=== PATIENT | female | born 1990 | race Caucasian/White ===

== ENCOUNTER 2024-10-07 14:00 | Outpatient (AMB) | payer MEDICAID, SELFPAY ==
--- NOTE | 2024-10-07 14:06 | AMB.OBINITIA ---
Vital Signs 10/07/24 14:07 Height 1.55 m Height Method Stated Weight 134.944 kg Weight Measurement Method Standing Scale BMI 56.2 BP 128/82 Blood Pressure Source Automatic Cuff Blood Pressure Location Right Upper Arm Position Sitting Respiration 20 Pulse 92 Pulse Source Monitor Temp 97.8 F Temp Source Temporal Artery Scan Pulse Oximetry (%) 98 Oxygen Delivery Method Room Air Allergies/Home Meds Allergies & Medications Allergies No Known Allergies Allergy (Unknown, Verified 10/07/24 14:08) Medication Reconciliation omeprazole 40 mg capsule,delayed release 40 mg PO QDAY 30 days #30 caps 10/07/24 [Rx] vitamin with calcium no.72-iron 27 mg-folic acid 1 mg tablet ( Vitamins Plus Low Iron) 1 tab PO QDAY 90 days #90 tabs 10/07/24 [Rx] Intake Visit Data Collection New Patient or Established: Established Patient (seen at [facility] within 3 years) Reason for Visit:: follow-up, nausea, increased appetite Do You Feel Safe at Home: Yes Authorities Contacted: N/A PCP or OBGYN visit in last 3 months: Yes Last menstrual period: 08/03/24 Pain Present Currently: No Smoking Status Smoking Status: Never smoker Questionnaires PHQ-9 PHQ-2 Over the last 2 weeks, how often have you been bothered by any of the following problems? 1. Little interest or pleasure in doing things: not at all 2. Feeling down, depressed, or hopeless: not at all Total score: 0 Depression screen completed yes Social History Living Situation History Marital Status: Single Lives With: Alone Housing: House Tobacco History Smoking Status: Never smoker Second Hand Smoke Exposure: No Alcohol History Alcohol Intake: Former Alcohol Intake Frequency: holidays/special occasions only Domestic Abuse History Do You Feel Safe at Home: Yes Past Medical History Past Medical History Have you ever been diagnosed with any of the following: Neurological Problems Seizures: No Cardiology Problems Congestive Heart Failure: No Respiratory Problems Chronic Obstructive Pulmonary Disease (COPD): No Asthma: Yes Stomache/Intestinal Problems Hepatitis: No Genital/Urinary Problems Renal Disease: No Reproductive Problems Genital Herpes: No Gonorrhea: No Pelvic Inflammatory Disease: No Previous Pregnancies: Yes Syphilis: No Endocrine Problems Diabetes Mellitus Type 1: No Diabetes Mellitus Type 2: No Other Problems Hospitalization: Yes Down Syndrome: No Developmental Delay: No Shingles: No Falls: No Blood Transfusions: No Blood Transfusion Reaction: No Anesthesia Reactions: No MRSA: No VRSA: No Vancomycin-Resistant Enterococci: No Human Immunodeficiency Virus (HIV): No Chicken Pox: No Measles: No Mumps: No Rubella (Spanish Measles): No Pertussis: No Clostridium Difficile: No Cancer: No History of Present Illness HPI Chepe Martinez is a 9-week woman presenting for care. She has a history of a blighted ovum in December of last year, for which she underwent a suction curettage. Her last menstrual period was on August 03, 2024, placing her at 9 weeks and 2 days gestation with an estimated due date of May 10. The patient reports experiencing significant nausea throughout the day. She notes that she feels nauseous when not eating and that eating provides some relief, although she still feels nauseous after meals. As a result, she finds herself eating almost all day. The patient also mentions that she is eating more than usual. These symptoms suggest possible acid reflux contributing to her nausea. Prior to this appointment, the patient had an informal ultrasound performed by her cousin, which showed measurements approximately 2 days different from her last menstrual period dating. The patient expressed initial nervousness about the and sought this informal scan for reassurance. Obstetric History - GTPAL: A1 L3 - Current : - Gestational age: 9 weeks and 2 days by last menstrual period - Estimated due date: May 10, 2025 - history: - Blighted ovum in December 2023, treated with suction curettage Surgical History - Suction curettage in December 2023 for a blighted ovum Medications and Supplements - vitamins Social History - Occupation: Patient's cousin works for [employer], a [email or web address] that performs ultrasounds, including at-home gender scans - Living Situation: Lives near [place], as indicated by pharmacy location Review of Systems General: Positive for increased appetite. Gastrointestinal: Positive for nausea, acid reflux. OB Ultrasound OB Ultrasound Ultrasound technique: transabdominal Gestational sac assessment: Presence, location, size, shape: - Ultrasound (10/07/2024): - heartbeat: 165 bpm (normal) - Gestational age: 8 weeks and 1 day - Round gestational sac OB Initial Visit OB Flowsheet OB Flowsheet Initial Weight: Not Recorded Date <del>?</del> EGA Weight Edema CTX Effacement BP Fundal ht Pres Dilation Effacement Station Visit Note Alb Glu FHR Mov 10/07/24 <del>?</del> 9w 2d 134.944 kg 128/82 Mojgan Martinez, [id number] at 9w2d gestation (RUBY: 05/10/2025), presents for care. No CTX/LOF/VB. No NIELSON/VS, Epig/RUQ pain. Reports daily nausea, improved with eating, increased appetite. History of blighted ovum treated with suction curettage December 2023. Ultrasound (10/07/2024): FHR 165 bpm, CRL 8w1d, round gestational sac. Assessment & Plan: [id number] at 9w2d. Intrauterine confirmed. Nausea likely with reflux component. 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 on small frequent meals, avoiding reflux triggers, upright posture after eating Monitor symptoms and reassess at next visit 165 Menstrual History Menstrual reliability: approximate (month known) Flow: normal Menstrual regularity: regular Monthly: Yes Age at menarche: 13 On control pills at conception: No Date of positive home test: 08/20/24 OB History : 5 Para: 3 Hx Total # of Abortions (Spontaneous & Elective): 1 # of Living Children: 3 Delivery History 1st : Child's name: sohail date: 01/16/16 sex: male Gestational age at delivery (weeks): 41 Delivery type: weight (lbs): 2267.962 g History of depression before or after : No 2nd : Child's name: carli date: 05/17/17 sex: female Gestational age at delivery (weeks): 39 Delivery type: weight (lbs): 2721.554 g History of depression before or after : No 3rd : Child's name: uche date: 02/13/19 sex: female Gestational age at delivery (weeks): 39 Delivery type: weight (lbs): 3175.147 g History of depression before or after : No Infection History & Risk Evaluation History of STDs: none HIV risk evaluation: low risk Hepatitis B risk evaluation: low risk Varicella/chicken pox status: immunized Genetic Screening & History Genetic Screening/Teratology Counseling - Includes patient, baby's father, or anyone in either family with: 1. Patient's age 35 years or older as of estimated date of delivery: No 2. Thalassemia (Latvian, Yoruba, Mediterranean, or Background); MCV less than 80: No 3. Neural Tube Defect (Meningomyelocele, Spina Bifida, or Anencephaly): No 4. Congenital Heart Defect: No 5. Down Syndrome: No 6. Keanu-Sachs (Ashkenazi Mandaen, Cajun, [place]): No 7. Nora Disease (Ashkenazi Mandaen): No 8. Familial Dysautonomia (Ashkenazi Mandaen): No 9. Sickle Cell Disease or Trait (): No 10. Hemophilia or other blood disorders: No 11. Muscular Dystrophy: No 12. Cystic Fibrosis: No 13. [place]'s Chorea: No 14. Mental Retardation/Autism: No 15. Other inherited genetic or chromosomal disorder: No 16. Maternal Metabolic Disorder (EG,TYPE 1 Diabetes, PKU): No 17. Patient or baby's father had a child with defects not listed above: No 18. Recurrent loss or a stillbirth: No 19. Medications (including supplements, vitamins, herbs or otc drugs)/illicit/recreational drugs/alcohol since last menstrual period: No 20. Any other: No Infection History 1. Live with someone with TB or exposed to TB: No 2. Rash or viral illness since last menstrual period: No 3. Hepatitis B,C: No Other (see comments) Source: [employer] Review of Systems Review of Systems Systems Reviewed: All systems reviewed, normal except as documented Exam General General Appearance: alert, in no apparent distress and healthy appearing Head Head exam: atraumatic Neck Neck exam: Present normal inspection and trachea midline Chest Chest inspection: Present normal inspection and symmetric chest wall rise External exam: Present normal external exam; Absent tenderness Neuro Neurological exam: Present oriented X3 Psych Psychiatric exam: Present normal affect and normal mood Assessment & Plan Diagnosis / Problem List (1) Supervision of high risk , unspecified, first trimester: Status: Acute (2) Obesity, Class III, BMI 40-49.9 (morbid obesity): Status: Acute (3) Supervision of with other poor reproductive or obstetric history, first trimester: Status: Acute (4) Maternal care for low transverse scar from previous delivery: Status: Acute (5) Uterine size-date discrepancy, first trimester: Status: Acute Plan Mojgan Martinez, , approximately 9 weeks by LMP, with history of blighted ovum and suction D&C in December 2023, presenting for care. Intrauterine Assessment: Patient is approximately 9 weeks and 2 days gestation based on LMP of August 03, 2024, with RUBY of May 10, 2025. Ultrasound performed today shows CRL consistent with 8 weeks and 1 day gestation, which is within an acceptable range of variation. heartbeat was detected at 165 bpm, which is within normal limits. The gestational sac appears round and appropriately sized. Plan: - Perform initial labs including blood group typing, infection screening, and genetic testing for Down syndrome and sex determination - Schedule follow-up ultrasounds for ongoing assessment and growth monitoring - Continue vitamins Nausea and possible acid reflux Assessment: Patient reports significant nausea throughout the day, which is partially alleviated by eating. The constant desire to eat and temporary relief with food intake suggest a possible component of acid reflux contributing to her symptoms. Plan: - Prescribe acid reflux medication to [facility] ([facility] [place]) - Educate patient on dietary modifications and lifestyle changes to manage nausea and reflux symptoms - Monitor symptoms and adjust treatment as needed at follow-up visits Office Procedures OB Clinic LOC & Office Proc's Nursing/Assessment Patient Status: Initial/New Patient OB Clinic Nursing Assessment: BP Monitoring, Medication Reconciliation, Update PMH in EMR and Vital Signs OB Clinic Coordination of Care: Complex Care and Chronic Disease 1-5, Education Complex Pt/Fam, Consent,records obtained, informed consent and Staff clarify orders New Patient Charge New Patient Point Assignment: [id number] 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
[2024-10-07 14:07] VITALS: BP 128/82; PULSE 92; RESP 20; TEMP 36.6; O2SAT 98; BMI 56.2
== END 2024-10-07 14:41 | disposition home or self-care (01) ==
LOC: HODSOBC 14:00
PROVIDERS: Supervising Provider Obstetrics & Gynecology; Visit Provider Obstetrics & Gynecology
DX: O09.291 Supervision of pregnancy with other poor reproductive or obstetric history, first trimester (principal); Z3A.09 9 weeks gestation of pregnancy; O34.211 Maternal care for low transverse scar from previous cesarean delivery; O09.891 Supervision of other high risk pregnancies, first trimester; O26.841 Uterine size-date discrepancy, first trimester; O99.891 Other specified diseases and conditions complicating pregnancy; R11.0 Nausea; E66.813 Obesity, class 3; Z87.59 Personal history of other complications of pregnancy, childbirth and the puerperium
CPT/HCPCS: 99203; G0463

== ENCOUNTER 2024-11-06 14:12 | Outpatient (AMB) | payer MEDICAID, SELFPAY ==
--- NOTE | 2024-11-06 14:25 | OBCLNT_ITS ---
Vital Signs 11/06/24 14:36 Height 1.55 m Height Method Stated Weight 134.377 kg Weight Measurement Method Standing Scale BMI 55.9 BP 136/82 H Blood Pressure Source Automatic Cuff Blood Pressure Location Right Upper Arm Position Sitting Respiration 20 Pulse 99 Pulse Source Monitor Temp 98.1 F Temp Source Oral Pulse Oximetry (%) 96 Oxygen Delivery Method Room Air Allergies/Home Meds Allergies & Medications Allergies No Known Allergies Allergy (Unknown, Verified 11/06/24 14:37) Medication Reconciliation omeprazole 40 mg capsule,delayed release 40 mg PO QDAY 30 days #30 caps 10/07/24 [Rx Confirmed 11/06/24] vitamin with calcium no.72-iron 27 mg-folic acid 1 mg tablet ( Vitamins Plus Low Iron) 1 tab PO QDAY 90 days #90 tabs 10/07/24 [Rx Confirmed 11/06/24] Intake Visit Data Collection New Patient or Established: Established Patient (seen at [facility] within 3 years) Reason for Visit:: CARE Seen by Clinical Staff ONLY (RN/MA): No Screen Roller Required: No Do You Feel Safe at Home: Yes Authorities Contacted: N/A PCP or OBGYN visit in last 3 months: Yes Hx Now: Yes Are you currently on any form of Control: No Pain Present Currently: No Pain Scale Used: Magallanes-Oropeza/Numerical Pain scale:: 0 Smoking Status Smoking Status: Never smoker Questionnaires Covid-19 Vaccine Questionnaire Has patient been vacinated for Covid-19 Have you been vacinated for Covid-19: No PHQ-9 PHQ-2 Over the last 2 weeks, how often have you been bothered by any of the following problems? 1. Little interest or pleasure in doing things: not at all 2. Feeling down, depressed, or hopeless: not at all Total score: 0 PHQ-9 3. Trouble falling or staying asleep, or sleeping too much: Not at all 4. Feeling tired or having little energy: Not at all 5. Poor appetite or overeating: Not at all 6. Feeling bad about yourself - or that you are a failure or have let yourself or your family down: Not at all 7. Trouble concentrating on things, such as reading the newspaper or watching television: Not at all 8. Moving or speaking so slowly that other people could have noticed? - Or the opposite - being so fidgety or restless that you have been moving around a lot more than usual: not at all 9. Thoughts that you would be better off or of hurting yourself in some way: Not at all Total score: 0 Source: Developed by Drs. Jim Palumbo, Elba Cai, Titi Freeman and colleagues, with an educational mamie from [employer] 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 - Patient reports no nausea or vomiting. - She denies any current health concerns or symptoms. No contractions/ LOF/VB No NIELSON/VC/RUQ/Epig pain Care OB Visit Log OB Flowsheet Initial Weight: Not Recorded Date -?-?-?-?-?-?-?-?-?-?-?-?- EGA Weight BP Alb Glu CTX Pres Fundal ht FHR Mov Dilation Station Effa cement Hx Notes Visit Note 10/07/24 -?-?-?-?-?-?-?-?-?-?-?-?- 9w 2d 134.944 kg 128/82 165 Mojgan Martinez, [id number] at 9w2d gestation (RUBY: 05/10/2025), presents for care. No CTX/LOF/VB. No NIELSON/VS, Epig/RUQ pain. Reports daily nausea, improved with eati ng, increased appetite. History of blighted ovum treated with suction curettage December 2023. Ultrasound (10/07/2024): FHR 165 bpm, CRL 8w1d, round gestational sac. Assessment & Plan: [id number] at 9w2d. Intrauterine confirmed. Nausea likely with reflux component. Order initial OB labs: blood type, infec tious screening, genetic testing Schedule follow-up ultrasounds for growt h monitoring Continue vitamins Prescribe reflux medication to [facility] ([place]) Education Assistant on small frequent meals, avoidin g reflux triggers, upright posture after eating Monitor symptoms and reassess at next visit 11/06/24 -?-?-?-?-?-?-?-?-?-?-?-?- 13w 4d 134.377 kg 136/82 at 13 weeks and 4 days gestation presents for routine follow-up care. No complaints or concerns reported. Denies nausea or other symptoms. heart tones 151 bpm. Ultrasound shows appropriate anatomy including head, trunk, stomach, and extremities. Genetic screening negative for trisomies, SMA, Fragile X, and cystic fibrosis; sex consistent with male. Routine labs including CBC, HIV, hepatitis panel, and antibody screen were unremarkable. Plan: Problem List: 13w4d, . Follow-up in 4 weeks. Patient will be co ntacted by [facility] to schedule detailed anatomy ultrasound around 20 weeks. Reviewed precautions, movement expectations, and importance of diet and hydration. Routine education provided. - Date: 10/09/2024 - Hepatitis B: Negative - Hepatitis C: Negative - Atypical antibodies: Non-reactive - Rubella: Immune - Blood group: O-positive - Antibody screen: Negative - HIV: Negative - Gonorrhea: Intermediate-negative - CBC: Hemoglobin 11.6 g/dL, Hematocri t 34.9%, Platelets 200.6 K/?L - NIPT (Non-Invasive Testing) : Negative for trisomies and chromosomal abnormalities, sex consistent with male - SMA (Spinal Muscular Atrophy) testin g: Negative - Fragile X testing: Negative - Cystic Fibrosis screening: Negative RUBY Calculator Estimated Delivery Date Method Current WG Current Estimate 05/10/25 LMP (Certain) 13w 4d Other Estimates 05/17/25 Ultrasound #1 12w 4d Results Objective Laboratory: - Date: 10/09/2024 - Hepatitis B: Negative - Hepatitis C: Negative - Atypical antibodies: Non-reactive - Rubella: Immune - Blood group: O-positive - Antibody screen: Negative - HIV: Negative - Gonorrhea: Intermediate-negative - CBC: Hemoglobin 11.6 g/dL, Hematocrit 34.9%, Platelets 200.6 K/?L - NIPT (Non-Invasive Testing): Negative for trisomies and chromosomal abnormalities, sex consistent with male - SMA (Spinal Muscular Atrophy) testing: Negative - Fragile X testing: Negative - Cystic Fibrosis screening: Negative Imaging: - Ultrasound (11/06/2024): - heart rate: 151 bpm - anatomy: Head, body, trunk, stomach, and legs visualized - sex: Consistent with male Exam General General Appearance: alert, in no apparent distress and healthy appearing Head Head exam: atraumatic Neck Neck exam: Present normal inspection and trachea midline Chest Chest inspection: Present normal inspection and symmetric chest wall rise External exam: Present normal external exam; Absent tenderness Neuro Neurological exam: Present oriented X3 Psych Psychiatric exam: Present normal affect and normal mood Office Procedures OB Clinic LOC & Office Proc's Nursing/Assessment Patient Status: Established Patient OB Clinic Nursing Assessment: Medication Reconciliation, Update PMH in EMR and Vital Signs OB Clinic Coordination of Care: Complex Care and Chronic Disease 1-5, Consent,records obtained, informed consent, Education Simp Pt/Fam, Lab and Imaging orders, Results/Orders obtained and Staff clarify orders Special Needs: Heart tones Established Patient Charge Established Patient Point Assignment: 135 Established Patient Point Charge: EP Level 4 (120-155) Assessment & Plan Diagnosis / Problem List (1) Uterine size-date discrepancy, first trimester: Status: Acute (2) Supervision of with other poor reproductive or obstetric history, first trimester: Status: Acute (3) Maternal care for low transverse scar from previous delivery: Status: Acute (4) Supervision of high risk , unspecified, first trimester: Status: Acute (5) Obesity, Class III, BMI 40-49.9 (morbid obesity): Status: Acute Plan Problem List - , 13 weeks and 4 days gestation - 5, Para 3013 Assessment - Intrauterine at 13 weeks and 4 days gestation - 5, Para 3013 - heart rate 151 bpm, within normal range - Male fetus confirmed by genetic testing - Negative results for trisomies and chromosomal abnormalities - Negative genetic screening for SMA, Fragile X, and cystic fibrosis - Hemoglobin 11.6 g/dL, hematocrit 34.9%, platelets 200,600/?L - Blood type O positive with negative antibody screen - Negative for hepatitis B, hepatitis C, HIV, rubella (immune), and gonorrhea Plan - Follow-up appointment scheduled in 4 weeks - Ultrasound scheduled at approximately 20 weeks gestation at [place] office of [facility] - Patient instructed to expect a call from [facility] to schedule the ultrasound appointment Educated the patient on labor signs, including regular contractions, lower back pain, and changes in vaginal discharge. Advised avoiding heavy lifting and getting adequate rest. Instructed to contact the office immediately if any signs occur. Discussed the importance of a balanced diet rich in folic acid, iron, and calcium, and provided a list of recommended and to-avoid foods. Emphasized avoiding high-sugar foods to reduce gestational diabetes risk. Encouraged hydration and frequent, small meals for energy..
[2024-11-06 14:36] VITALS: BP 136/82; PULSE 99; RESP 20; TEMP 36.7; O2SAT 96; BMI 55.9
== END 2024-11-06 14:44 | disposition home or self-care (01) ==
LOC: HODSOBC 14:12
PROVIDERS: PCP Obstetrics & Gynecology; Referring Provider Obstetrics & Gynecology; Supervising Provider Obstetrics & Gynecology; Visit Provider Obstetrics & Gynecology
DX: O09.291 Supervision of pregnancy with other poor reproductive or obstetric history, first trimester (principal); O09.891 Supervision of other high risk pregnancies, first trimester; O34.211 Maternal care for low transverse scar from previous cesarean delivery; Z3A.13 13 weeks gestation of pregnancy; O26.841 Uterine size-date discrepancy, first trimester; O99.211 Obesity complicating pregnancy, first trimester; E66.813 Obesity, class 3
CPT/HCPCS: 99214; G0463

== ENCOUNTER 2024-12-02 14:18 | Outpatient (AMB) | payer MEDICAID, SELFPAY ==
--- NOTE | 2024-12-02 13:56 | AMB.OBVISIT ---
Allergies/Home Meds Allergies & Medications Allergies No Known Allergies Allergy (Unknown, Verified 11/06/24 14:37) Intake Smoking Status Smoking Status: Never smoker Questionnaires PHQ-9 PHQ-2 Over the last 2 weeks, how often have you been bothered by any of the following problems? 1. Little interest or pleasure in doing things: not at all PHQ-9 8. Moving or speaking so slowly that other people could have noticed? - Or the opposite - being so fidgety or restless that you have been moving around a lot more than usual: not at all Total score: 0 Source: Developed by Drs. Jim Palumbo, Elba Cai, Titi Freeman and colleagues, with an educational mamie from [employer]. 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 No CTX/LOF/VB. No NIELSON/VS, Epig/RUQ pain. Reports daily nausea, improved with eating, increased appetite. History of blighted ovum treated with suction curettage December 2023. Ultrasound (10/07/2024): FHR 165 bpm, CRL 8w1d, round gestational sac. Assessment & Plan: [id number] at 9w2d. Intrauterine confirmed. Nausea likely with reflux component. 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 No complaints or concerns reported. Denies nausea or other symptoms. heart tones 151 bpm. Ultrasound shows appropriate anatomy including head, trunk, stomach, and extremities. Genetic screening negative for trisomies, SMA, Fragile X, and cystic fibrosis; sex consistent with male. Routine labs including CBC, HIV, hepatitis panel, and antibody screen were unremarkable. Plan: Problem List: 13w4d, . Follow-up in 4 weeks. Patient will be contacted by [facility] to schedule detailed anatomy ultrasound around 20 weeks. Reviewed precautions, movement expectations, and importance of diet and hydration. Routine education provided. - Date: 10/09/2024 - Hepatitis B: Negative - Hepatitis C: Negative - Atypical antibodies: Non-reactive - Rubella: Immune - Blood group: O-positive - Antibody screen: Negative - HIV: Negative - Gonorrhea: Intermediate-negative - CBC: Hemoglobin 11.6 g/dL, Hematocrit 34.9%, Platelets 200.6 K/?L - NIPT (Non-Invasive Testing): Negative for trisomies and chromosomal abnormalities, sex consistent with male - SMA (Spinal Muscular Atrophy) testing: Negative - Fragile X testing: Negative - Cystic Fibrosis screening: Negative RUBY Calculator Estimated Delivery Date Method Current WG Current Estimate 05/10/25 LMP (Certain) 17w 2d Other Estimates 05/17/25 Ultrasound #1 16w 2d
[2024-12-02 14:26] VITALS: BP 128/72; PULSE 102; RESP 18; TEMP 36.2; O2SAT 98; BMI 56.0
--- NOTE | 2024-12-02 14:26 | OBCLNT_ITS ---
Vital Signs 12/02/24 14:26 Height 1.55 m Height Method Stated Weight 134.774 kg Weight Measurement Method Standing Scale BMI 56.0 BP 128/72 Blood Pressure Source Automatic Cuff Blood Pressure Location Left Upper Arm Position Sitting Respiration 18 Pulse 102 H Pulse Source Monitor Temp 97.2 F Temp Source Oral Pulse Oximetry (%) 98 Oxygen Delivery Method Room Air Allergies/Home Meds Allergies & Medications Allergies No Known Allergies Allergy (Unknown, Verified 12/02/24 14:27) Medication Reconciliation omeprazole 40 mg capsule,delayed release 40 mg PO QDAY 30 days #30 caps 10/07/24 [Rx Confirmed 12/02/24] vitamin with calcium no.72-iron 27 mg-folic acid 1 mg tablet ( Vitamins Plus Low Iron) 1 tab PO QDAY 90 days #90 tabs 10/07/24 [Rx Confirmed 12/02/24] Intake Visit Data Collection New Patient or Established: Established Patient (seen at [facility] within 3 years) Reason for Visit:: OBC Seen by Clinical Staff ONLY (RN/MA): No Procurement Internship Required: No Do You Feel Safe at Home: Yes Authorities Contacted: N/A PCP or OBGYN visit in last 3 months: Yes Date of Last PCP or OBGYN visit: 11/06/24 Hx Now: Yes Are you currently on any form of Control: No Pain Present Currently: No Pain Scale Used: Magallanes-Oropeza/Numerical Pain scale:: 0 Smoking Status Smoking Status: Never smoker Questionnaires Covid-19 Vaccine Questionnaire Has patient been vacinated for Covid-19 Have you been vacinated for Covid-19: Yes PHQ-9 PHQ-2 Over the last 2 weeks, how often have you been bothered by any of the following problems? 1. Little interest or pleasure in doing things: not at all 2. Feeling down, depressed, or hopeless: not at all Total score: 0 PHQ-9 3. Trouble falling or staying asleep, or sleeping too much: Not at all 4. Feeling tired or having little energy: Not at all 5. Poor appetite or overeating: Not at all 6. Feeling bad about yourself - or that you are a failure or have let yourself or your family down: Not at all 7. Trouble concentrating on things, such as reading the newspaper or watching television: Not at all 8. Moving or speaking so slowly that other people could have noticed? - Or the opposite - being so fidgety or restless that you have been moving around a lot more than usual: not at all 9. Thoughts that you would be better off or of hurting yourself in some way: Not at all Total score: 0 If you checked off any problems, how difficult have these problems made it for you to do your work, take care of things at home, or get along with other people?: not difficult at all Source: Developed by Drs. Jim Palumbo, Elba Cai, Titi Freeman and colleagues, with an educational mamie from [employer]. 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 Her estimated due date is May 10, 2025. The patient was last seen 4 weeks ago, at which time her blood tests and panel results were discussed. She reports no significant complaints or concerns at this visit. When asked about nausea, vomiting, or any other problems, the patient did not indicate experiencing any of these symptoms. She confirms that she is taking her vitamins as prescribed. A brief bedside ultrasound was performed during the visit, which revealed normal activity and a heart rate of 144 beats per minute. The patient expressed positive emotions upon seeing the images, describing the baby as so cute. The patient is awaiting a referral to [facility] for a Level 2 anatomy ultrasound, which is expected to be scheduled around 20 weeks gestation. She has not yet been contacted by the facility to schedule this appointment. Obstetric History - GTPAL: G5 T3 L3 - Current : - Gestational age: 17 weeks and 2 days - Estimated due date: May 10, 2025 Medications and Supplements - vitamins Social History - Family Structure: Patient has multiple children (this is her 4th ) Review of Systems Gastrointestinal: Negative for nausea, vomiting. Care OB Visit Log OB Flowsheet Initial Weight: Not Recorded Date -?-?-?-?-?-?-?-?-?-?-?-?- EGA Weight BP Alb Glu CTX Pres Fundal ht FHR Mov Dilation Station Effacement Hx Notes Visit Note 10/07/24 -?-?-?-?-?-?-?-?-?-?-?-?- 9w 2d 134.944 kg 128/82 165 Mojgan Martinez, [id number] at 9w2d gestation (RUBY: 05/10/2025), presents for care. No CTX/LOF/VB. No NIELSON/VS, Epig/RUQ pain. Reports daily nausea, improved with eati ng, increased appetite. History of blighted ovum treated with suction curettage December 2023. Ultrasound (10/07/2024): FHR 165 bpm, CRL 8w1d, round gestational sac. Assessment & Plan: [id number] at 9w2d. Intrauterine confirmed. Nausea likely with reflux component. 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 No complaints or concerns reported. Denies nausea or other symptoms. heart tones 151 bpm. Ultrasound shows appropriate anatomy including head, trunk, stomach, and extremities. Genetic screening negative for trisomies, SMA, Fragile X, and cystic fibrosis; sex consistent with male. Routine labs including CBC, HIV, hepatitis panel, and antibody screen were unremarkable. Plan: Problem List: 13w4d, . Follow-up in 4 weeks. Patient will be co ntacted by [facility] to schedule detailed anatomy ultrasound around 20 weeks. Reviewed prec autions, movement expectations, and importance of diet and hydration. Routine education provided. - Date: 10/09/2024 - Hepatitis B: Negative - Hepatitis C: Negative - Atypical antibodies: Non-reactive - Rubella: Immune - Blood group: O-positive - Antibody screen: Negative - HIV: Negative - Gonorrhea: Intermediate-negative - CBC: Hemoglobin 11.6 g/dL, Hematocri t 34.9%, Platelets 200.6 K/?L - NIPT (Non-Invasive Testing) : Negative for trisomies and chromosomal abnormalities, sex consistent with male - SMA (Spinal Muscular Atrophy) testin g: Negative - Fragile X testing: Negative - Cystic Fibrosis screening: Negative 12/02/24 -?-?-?-?-?-?-?-?-?-?-?-?- 17w 2d 134.774 kg 128/72 absent unknown 144 at 17w2d, RUBY 05/10/25. Routine care. Denies nausea/vomiting, taking vitamins. Bedside US: FHR 144, normal anatomy/movement, placenta/fluid/ cord normal. Awaiting [facility] Level 2 anatomy scan referral (~20w), GTT at next visit, continue vitamins, FU 4w, call if no referral contact in 2w. RUBY Calculator Estimated Delivery Date Method Current WG Current Estimate 05/10/25 LMP (Certain) 18w 0d Other Estimates 05/17/25 Ultrasound #1 17w 0d Exam General General Appearance: alert, in no apparent distress and healthy appearing Head Head exam: atraumatic Neck Neck exam: Present normal inspection and trachea midline Chest Chest inspection: Present normal inspection and symmetric chest wall rise External exam: Present normal external exam; Absent tenderness Neuro Neurological exam: Present oriented X3 Psych Psychiatric exam: Present normal affect and normal mood Office Procedures OB Clinic LOC & Office Proc's Nursing/Assessment Patient Status: Established Patient OB Clinic Nursing Assessment: Medication Reconciliation and Update PMH in EMR OB Clinic Coordination of Care: Education Complex Pt/Fam, Consent,records obtained, informed consent, Lab and Imaging orders, Results/Orders obtained and Staff clarify orders Special Needs: Heart tones Established Patient Charge Established Patient Point Assignment: 100 Established Patient Point Charge: EP Level 3 (80-115) Assessment & Plan Diagnosis / Problem List (1) Uterine size-date discrepancy, first trimester: Status: Acute (2) Supervision of with other poor reproductive or obstetric history, first trimester: Status: Acute (3) Maternal care for low transverse scar from previous delivery: Status: Acute (4) Supervision of high risk , unspecified, first trimester: Status: Acute (5) Obesity, Class III, BMI 40-49.9 (morbid obesity): Status: Acute Plan Mojgan Martinez is a 34-year-old at 17 weeks and 2 days gestation presenting for routine care with RUBY 05/10/2025. Routine care Assessment: Patient is at 17 weeks and 2 days gestation, consistent with RUBY of 05/10/2025. Previous blood tests and panel results have been discussed. Current visit includes a bedside ultrasound showing normal anatomy and heart rate of 144 bpm. Placenta, amniotic fluid, and umbilical cord appear normal on ultrasound. Patient denies any current problems or symptoms such as nausea or vomiting. Plan: - Referral to [facility] for Level 2 anatomy ultrasound pending - Patient to expect call or letter from referral center within 1-2 weeks - Return for follow-up appointment in 4 weeks - Glucose tolerance test scheduled for next appointment - Continue vitamins - Patient instructed to call if no contact from referral center within 2 weeks
== END 2024-12-02 15:11 | disposition home or self-care (01) ==
LOC: HODSOBC 14:18
PROVIDERS: PCP Obstetrics & Gynecology; Referring Provider Obstetrics & Gynecology; Supervising Provider Obstetrics & Gynecology; Visit Provider Obstetrics & Gynecology
DX: O09.292 Supervision of pregnancy with other poor reproductive or obstetric history, second trimester (principal); O34.211 Maternal care for low transverse scar from previous cesarean delivery; O09.892 Supervision of other high risk pregnancies, second trimester; O26.842 Uterine size-date discrepancy, second trimester; O99.212 Obesity complicating pregnancy, second trimester; E66.813 Obesity, class 3; Z3A.17 17 weeks gestation of pregnancy
CPT/HCPCS: 99213; G0463

== ENCOUNTER 2025-01-02 13:53 | Outpatient (AMB) | payer MEDICAID, SELFPAY ==
[2025-01-02 14:13] VITALS: BP 138/80; PULSE 86; RESP 17; TEMP 36.8; O2SAT 97; BMI 55.2
--- NOTE | 2025-01-02 14:13 | OBCLNT_ITS ---
Vital Signs 01/02/25 14:13 Height 1.55 m Height Method Measured Weight 132.619 kg Weight Measurement Method Standing Scale BMI 55.2 BP 138/80 H Blood Pressure Source Automatic Cuff Blood Pressure Location Right Upper Arm Position Sitting Respiration 17 Pulse 86 Pulse Source Monitor Temp 98.3 F Temp Source Temporal Artery Scan Pulse Oximetry (%) 97 Oxygen Delivery Method Room Air Allergies/Home Meds Allergies & Medications Allergies No Known Allergies Allergy (Unknown, Verified 02/20/25 13:46) Medication Reconciliation vitamins with calcium no.72-iron 27 mg-folic acid 1 mg tablet ( Vitamins Plus Low Iron) 1 tab PO QDAY 90 days #90 tabs 10/07/24 [Rx Confirmed 02/20/25] nifedipine 30 mg tablet,extended release 30 mg PO QDAY 30 days #30 tabs 02/05/25 [Rx Confirmed 02/20/25] Intake Visit Data Collection New Patient or Established: Established Patient (seen at [facility] within 3 years) Reason for Visit:: OBC Consent obtained for Telemed Visit: No Seen by Clinical Staff ONLY (RN/MA): No 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 1. Little interest or pleasure in doing things: not at all PHQ-9 8. Moving or speaking so slowly that other people could have noticed? - Or the opposite - being so fidgety or restless that you have been moving around a lot more than usual: not at all Source: Developed by Drs. Jim Palumbo, Elba Cai, Titi Freeman and colleagues, with an educational mamie from [employer]. 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 No CTX/LOF/VB. No NIELSON/VS, Epig/RUQ pain. Reports daily nausea, improved with eati ng, increased appetite. History of blighted ovum treated with suction curettage December 2023. Ultrasound (10/07/2024): FHR 165 bpm, CRL 8w1d, round gestational sac. Assessment & Plan: [id number] at 9w2d. Intrauterine confirmed. Nausea likely with reflux component. 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 No complaints or concerns reported. Denies nausea or other symptoms. heart tones 151 bpm. Ultrasound shows appropriate anatomy including head, trunk, stomach, and extremities. Genetic screening negative for trisomies, SMA, Fragile X, and cystic fibrosis; sex consistent with male. Routine labs including CBC, HIV, hepatitis panel, and antibody screen were unremarkable. Plan: Problem List: 13w4d, . Follow-up in 4 weeks. Patient will be co ntacted by [facility] to schedule detailed anatomy ultrasound around 20 weeks. Reviewed precautions, movement expectations, and importance of diet and hydration. Routine education provided. - Date: 10/09/2024 - Hepatitis B: Negative - Hepatitis C: Negative - Atypical antibodies: Non-reactive - Rubella: Immune - Blood group: O-positive - Antibody screen: Negative - HIV: Negative - Gonorrhea: Intermediate-negative - CBC: Hemoglobin 11.6 g/dL, Hematocri t 34.9%, Platelets 200.6 K/?L - NIPT (Non-Invasive Testing) : Negative for trisomies and chromosomal abnormalities, sex consistent with male - SMA (Spinal Muscular Atrophy) testin g: Negative - Fragile X testing: Negative - Cystic Fibrosis screening: Negative 12/02/24 -?-?-?-?-?-?-?-?-?-?-?-?- 17w 2d 134.774 kg 128/72 absent unknown 144 at 17w2d, RUBY 05/10/25. Routine care. Denies nausea/vomiting, taking vitamins. Bedside US: FHR 144, normal anatomy/movement, placenta/fluid/cord normal. Herrera reeves [facility] Level 2 anatomy scan referral (~20w), GTT at next visit, continue vitamins, FU 4w, call if no referral contact in 2w. 01/02/25 -?-?-?-?-?-?-?-?-?-?-?-?- 21w 5d 132.619 kg 138/80 absent unknown 22 139 active - Mojgan Martinez is a 7 para 3 patient presenting for routine care at 21 weeks and 5 days gestation. - Patient reports feeling tired all the time, which she acknowledges as expected during . - No other specific complaints or concer ns reported. - Upcoming anatomy scan ultrasound sched uled at [facility] for the following . - Attend scheduled ultrasound at [facility] on - Provider to call and obtain ultrasound report on Sunday - Complete glucose tolerance test (diabe mando test) within 2-3 weeks, before 24- week raheem - Glucose test order provided today, to be completed before next appointment - Follow up appointment scheduled in 4 w eeks - Provider to review ultrasound results before next appointment 02/03/25 -?-?-?-?-?-?-?-?-?-?-?-?- 26w 2d 134.83 kg 132/79 absent cephalic 146 26w2d with negative 1hr GTT (130), FHR 146, normal anatomy except limited views, breech, no signs of labor. Plan: Send presc ription for preeclampsia prevention, follow-up U/S at [facility] this week, RTC in 4 weeks, monitor diet and weight. RUBY Calculator Estimated Delivery Date Method Current WG Current Estimate 05/10/25 LMP (Certain) 30w 0d Other Estimates 05/17/25 Ultrasound #1 29w 0d Office Procedures OB Clinic LOC & Office Proc's Nursing/Assessment Patient Status: Established Patient OB Clinic Nursing Assessment: Medication Reconciliation, Update PMH in EMR and Vital Signs OB Clinic Coordination of Care: Complex Care and Chronic Disease 1-5, Consent,records obtained, informed consent, Education Simp Pt/Fam and 4+ Authorizations needed Special Needs: Heart tones Established Patient Charge Established Patient Point Assignment: 130 Established Patient Point Charge: EP Level 4 (120-155) Assessment & Plan Diagnosis / Problem List (1) Maternal care for low transverse scar from previous delivery: Status: Acute (2) Obesity, Class III, BMI 40-49.9 (morbid obesity): Status: Acute
== END 2025-01-02 14:50 | disposition home or self-care (01) ==
LOC: HODSOBC 13:53
PROVIDERS: PCP Obstetrics & Gynecology; Referring Provider Obstetrics & Gynecology; Supervising Provider Obstetrics & Gynecology; Visit Provider Obstetrics & Gynecology
DX: O09.292 Supervision of pregnancy with other poor reproductive or obstetric history, second trimester (principal); O34.211 Maternal care for low transverse scar from previous cesarean delivery; O99.212 Obesity complicating pregnancy, second trimester; E66.01 Morbid (severe) obesity due to excess calories; Z3A.21 21 weeks gestation of pregnancy
CPT/HCPCS: 99214; G0463

== ENCOUNTER 2025-02-03 13:15 | Outpatient (AMB) | payer MEDICAID, SELFPAY ==
[2025-02-03 13:26] VITALS: BP 132/79; PULSE 101; RESP 16; TEMP 36.2; O2SAT 98; BMI 56.1
--- NOTE | 2025-02-03 13:26 | OBCLNT_ITS ---
Vital Signs 02/03/25 13:26 Height 1.55 m Height Method Stated Weight 134.83 kg Weight Measurement Method Standing Scale BMI 56.1 BP 132/79 H Blood Pressure Source Automatic Cuff Blood Pressure Location Left Upper Arm Position Sitting Respiration 16 Pulse 101 H Pulse Source Monitor Temp 97.2 F Temp Source Oral Pulse Oximetry (%) 98 Oxygen Delivery Method Room Air Allergies/Home Meds Allergies & Medications Allergies No Known Allergies Allergy (Unknown, Verified 02/05/25 12:07) Medication Reconciliation vitamins with calcium no.72-iron 27 mg-folic acid 1 mg tablet ( Vitamins Plus Low Iron) 1 tab PO QDAY 90 days #90 tabs 10/07/24 [Rx Confirmed 02/05/25] nifedipine 30 mg tablet,extended release 30 mg PO QDAY 30 days #30 tabs 02/05/25 [Rx] Intake Visit Data Collection New Patient or Established: Established Patient (seen at [facility] within 3 years) Reason for Visit:: OBC Seen by Clinical Staff ONLY (RN/MA): No Group Insurance Specialist Required: No Do You Feel Safe at Home: Yes Authorities Contacted: N/A PCP or OBGYN visit in last 3 months: Yes Date of Last PCP or OBGYN visit: 01/02/25 Hx Now: Yes Are you currently on any form of Control: No Pain Present Currently: No Pain Scale Used: Magallanes-Oropeza/Numerical Pain scale:: 0 Smoking Status Smoking Status: Never smoker Questionnaires Covid-19 Vaccine Questionnaire Has patient been vacinated for Covid-19 Have you been vacinated for Covid-19: Yes PHQ-9 PHQ-2 Over the last 2 weeks, how often have you been bothered by any of the following problems? 1. Little interest or pleasure in doing things: not at all 2. Feeling down, depressed, or hopeless: not at all Total score: 0 PHQ-9 3. Trouble falling or staying asleep, or sleeping too much: Not at all 4. Feeling tired or having little energy: Not at all 5. Poor appetite or overeating: Not at all 6. Feeling bad about yourself - or that you are a failure or have let yourself or your family down: Not at all 7. Trouble concentrating on things, such as reading the newspaper or watching television: Not at all 8. Moving or speaking so slowly that other people could have noticed? - Or the opposite - being so fidgety or restless that you have been moving around a lot more than usual: not at all 9. Thoughts that you would be better off or of hurting yourself in some way: Not at all Total score: 0 If you checked off any problems, how difficult have these problems made it for you to do your work, take care of things at home, or get along with other people?: not difficult at all Source: Developed by Drs. Jim Palumbo, Elba Cai, Titi Freeman and colleagues, with an educational mamie from [employer]. 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 Medical History Past Medical History: No Hx Neurological Disorders, No Hx Cardiac Disorders (HX OF PREECLAMPSIA 2015), No Hx Cancer, No Hx Blood Disorders, No Hx Gastrointestinal Disorders, No Hx Renal Disease, No Hx Diabetes Mellitus Type 1 and No Hx Diabetes Mellitus Type 2 Care OB Visit Log OB Flowsheet Initial Weight: Not Recorded Date -?-?-?-?-?-?-?-?-?-?-?-?- EGA Weight BP Alb Glu CTX Pres Fundal ht FHR Mov Dilation Station Effacement Hx Notes Visit Note 10/07/24 -?-?-?-?-?-?-?-?-?-?-?-?- 9w 2d 134.944 kg 128/82 165 Mojgan Martinez, [id number] at 9w2d gestation (RUBY: 05/10/2025), presents for care. No CTX/LOF/VB. No NIELSON/VS, Epig/RUQ pain. Reports daily nausea, improved with eati ng, increased appetite. History of blighted ovum treated with suction curettage December 2023. Ultrasound (10/07/2024): FHR 165 bpm, CRL 8w1d, round gestational sac. Assessment & Plan: [id number] at 9w2d. Intrauterine confirmed. Nausea likely with reflux component. 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 No complaints or concerns reported. Denies nausea or other symptoms. heart tones 151 bpm. Ultrasound shows appropriate anatomy including head, trunk, stomach, and extremities. Genetic screening negative for trisomies, SMA, Fragile X, and cystic fibrosis; sex consistent with male. Routine labs including CBC, HIV, hepatitis panel, and antibody screen were unremarkable. Plan: Problem List: 13w4d, . Follow-up in 4 weeks. Patient will be co ntacted by [facility] to schedule detailed anatomy ultrasound around 20 weeks. Reviewed precautions, movement expectations, and importance of diet and hydration. Routine education provided. - Date: 10/09/2024 - Hepatitis B: Negative - Hepatitis C: Negative - Atypical antibodies: Non-reactive - Rubella: Immune - Blood group: O-positive - Antibody screen: Negative - HIV: Negative - Gonorrhea: Intermediate-negative - CBC: Hemoglobin 11.6 g/dL, Hematocri t 34.9%, Platelets 200.6 K/?L - NIPT (Non-Invasive Testing) : Negative for trisomies and chromosomal abnormalities, sex consistent with male - SMA (Spinal Muscular Atrophy) testin g: Negative - Fragile X testing: Negative - Cystic Fibrosis screening: Negative 12/02/24 -?-?-?-?-?-?-?-?-?-?-?-?- 17w 2d 134.774 kg 128/72 absent unknown 144 at 17w2d, RUBY 05/10/25. Routine care. Denies nausea/vomiting, taking vitamins. Bedside US: FHR 144, normal anatomy/movement, placenta/fluid/cord normal. Herrera ereves [facility] Level 2 anatomy scan referral (~20w), GTT at next visit, continue vitamins, FU 4w, call if no referral contact in 2w. 02/03/25 -?-?-?-?-?-?-?-?-?-?-?-?- 26w 2d 134.83 kg 132/79 absent cephalic 146 26w2d with negative 1hr GTT (130), FHR 146, normal anatomy except limited views, breech, no signs of labor. Plan: Send presc ription for preeclampsia prevention, follow-up U/S at [facility] this week, RTC in 4 weeks, monitor diet and weight. RUBY Calculator Estimated Delivery Date Method Current WG Current Estimate 05/10/25 LMP (Certain) 26w 4d Other Estimates 05/17/25 Ultrasound #1 25w 4d Office Procedures OB Clinic LOC & Office Proc's Nursing/Assessment Patient Status: Established Patient OB Clinic Nursing Assessment: Medication Reconciliation, Update PMH in EMR and Vital Signs OB Clinic Coordination of Care: Education Complex Pt/Fam, Consent,records obtained, informed consent, Lab and Imaging orders and Staff clarify orders Special Needs: Heart tones Established Patient Charge Established Patient Point Assignment: 110 Established Patient Point Charge: EP Level 3 (80-115) Assessment & Plan Diagnosis / Problem List (1) Maternal care for low transverse scar from previous delivery: Status: Acute (2) Supervision of high risk , unspecified, first trimester: Status: Acute
== END 2025-02-03 13:39 | disposition home or self-care (01) ==
LOC: HODSOBC 13:15
PROVIDERS: Supervising Provider Obstetrics & Gynecology; Visit Provider Obstetrics & Gynecology
DX: O09.292 Supervision of pregnancy with other poor reproductive or obstetric history, second trimester (principal); O34.211 Maternal care for low transverse scar from previous cesarean delivery; Z3A.26 26 weeks gestation of pregnancy
CPT/HCPCS: 99213; G0463

== ENCOUNTER 2025-02-05 11:52 | Outpatient (CLI) | payer MEDICAID, SELFPAY ==
[2025-02-05] VITALS (32 sets, daily range): BP systolic 136–152; BP diastolic 55–73; PULSE 76–89; RESP 18–97; TEMP 36.8; O2SAT 95–100; BMI 36.6
[2025-02-05 13:03] LABS: Basophils # (Auto) 0.0 Thou/mm3 (0.0-0.2); Basophils % (Auto) 0 % (0-2.5); Eosinophils # (Auto) 0.1 Thou/mm3 (0.0-0.5); Eosinophils % (Auto) 1 % (0-10); Hematocrit 30.8 % (36.0-46.0); Hemoglobin 10.2 g/dL (12.0-16.0); Immature Granulocytes Auto 0.09 Thou/mm3 (0.00-0.00); Lymphocytes # (Auto) 2.0 Thou/mm3 (1.0-4.8); Lymphocytes % (Auto) 19 % (10-50); Mean Corpuscular HGB Conc 33.1 g/dl (31.0-37.0); Mean Corpuscular Hemoglobin 29.2 pg (25.0-35.0); Mean Corpuscular Volume 88 fL (80-100); Monocytes # (Auto) 0.6 Thou/mm3 (0.0-0.8); Monocytes % (Auto) 5 % (0-12); Neutrophils # (Auto) 8.1 Thou/mm3 (1.8-7.7); Neutrophils % (Auto) 75 % (37-80); Nucleated Red Blood Cell # 0.00 Thou/mm3 (0.00-0.00); Nucleated Red Blood Cell % 0 /100 WBC (0); Platelet Count 195 Thou/mm3 (140-440); RDW Standard Deviation 43.2 fL (36.4-46.3); Red Blood Count 3.49 Miln/mm3 (4.00-5.20); White Blood Count 10.8 Thou/mm3 (3.6-11.0)
[2025-02-05 13:07] LABS: Collection Type, Urine Clean Catch
[2025-02-05 13:19] LABS: Bacteria,Urine 1+; Bilirubin,Urine Negative (Negative); Blood,Urine Negative (Negative); Clarity,Urine Clear (Clear/Hazy); Color,Urine Colorless (Lt Yel-Yel); Glucose, Urine Negative (Negative); Ketones,Urine Negative (Negative); Leukocyte Esterase,Urine Negative (Negative); Nitrite,Urine Negative (Negative); PH,Urine 7.0 (5.0-7.0); Protein,Urine Negative (Neg - Trace); RBC,Urine 2 /hpf (0-3); Specific Gravity,Urine 1.004 (1.001-1.035); Squamous Epithelial Cell,Urine 3 /hpf (0-5); Urobilinogen,Urine Negative mg/dL (0.0-1.0); WBC,Urine 2 /hpf (0-5)
[2025-02-05 13:21] LABS: Fibrinogen 469 mg/dL (175-375); INR 0.9 (0.9-1.3); Partial Thromboplastin Time 27.6 Seconds (22.0-36.0); Prothrombin Time 10.3 Seconds (9.0-12.2)
[2025-02-05 13:28] LABS: Creatinine,Random Urine 29 mg/dL (30-125); Protein Total, Random Urine < 6 mg/dL (1-14)
[2025-02-05 14:01] LABS: Albumin, Serum 4.0 gm/dL (3.5-5.0); Albumin/Globulin Ratio 2.1 (1.2-2.2); Alkaline Phosphatase 51 U/L (46-116); Anion Gap 9 (7-16); Aspartate Amino Transferase < 10 U/L (0-34); BUN/Creatinine Ratio 13 Ratio (12-20); Bilirubin,Total 0.3 mg/dL (0.3-1.2); Blood Urea Nitrogen < 5 mg/dL (9-23); Calcium 9.6 mg/dL (8.3-10.6); Calcium (Corrected) 9.6 mg/dL (8.5-10.1); Carbon Dioxide 22.8 mMol/L (20.0-31.0); Chloride 108 mMol/L (98-107); Creatinine (Component) 0.4 mg/dL (0.6-1.3); Estimated Creatinine Clearance 203.6 mL/min (>60); Globulin 1.9 gm/dL (2.3-3.5); Glucose 81 mg/dL (74-106); LDH (Lactate Dehydrogenase) 113 U/L (120-246); Osmolality,Calculated 275 (275-295); Potassium 3.8 mMol/L (3.4-5.1); Sodium 140 mMol/L (136-145); Total Protein 5.9 gm/dL (5.7-8.2); eGFR > 60 See Note
[2025-02-05 14:16] LABS: Alanine Aminotransferase < 7 U/L (10-49)
[2025-02-05 16:43] LABS: Uric Acid 4.9 mg/dL (3.1-7.8)
== END 2025-02-05 14:20 | disposition home or self-care (01) ==
LOC: S4S1 11:55 → S4SX 11:55
PROVIDERS: Referring Provider Obstetrics & Gynecology; Visit Provider Obstetrics & Gynecology
DX: Z34.82 Encounter for supervision of other normal pregnancy, second trimester (principal); Z36.89 Encounter for other specified antenatal screening; Z3A.26 26 weeks gestation of pregnancy
CPT/HCPCS: 36415; 59025; 80053; 81001; 82570; 83615; 84156; 84550; 85025; 85384; 85610; 85730; 87086

== ENCOUNTER 2025-02-20 13:36 | Outpatient (AMB) | payer MEDICAID, SELFPAY ==
--- NOTE | 2025-02-20 13:45 | AMB.OBVISIT ---
Vital Signs 02/20/25 13:46 Height 1.55 m Height Method Stated Weight 135.171 kg Weight Measurement Method Standing Scale BMI 56.2 BP 139/77 H Blood Pressure Source Automatic Cuff Blood Pressure Location Left Upper Arm Position Sitting Respiration 16 Pulse 92 Pulse Source Monitor Temp 97.2 F Temp Source Oral Pulse Oximetry (%) 98 Oxygen Delivery Method Room Air Allergies/Home Meds Allergies & Medications Allergies No Known Allergies Allergy (Unknown, Verified 03/20/25 08:38) Medication Reconciliation vitamins with calcium no.72-iron 27 mg-folic acid 1 mg tablet ( Vitamins Plus Low Iron) 1 tab PO QDAY 90 days #90 tabs 10/07/24 [Rx Confirmed 03/20/25] nifedipine 30 mg tablet,extended release 30 mg PO QDAY 30 days #30 tabs 02/05/25 [Rx Confirmed 03/20/25] Intake Visit Data Collection New Patient or Established: Established Patient (seen at [facility] within 3 years) Reason for Visit:: OBC Seen by Clinical Staff ONLY (RN/MA): No Pressure Washer Required: No Do You Feel Safe at Home: Yes Authorities Contacted: N/A PCP or OBGYN visit in last 3 months: Yes Date of Last PCP or OBGYN visit: 02/05/25 Hx Now: Yes Are you currently on any form of Control: No Pain Present Currently: No Pain Scale Used: Magallanes-Oropeza/Numerical Pain scale:: 0 Smoking Status Smoking Status: Never smoker Questionnaires Covid-19 Vaccine Questionnaire Has patient been vacinated for Covid-19 Have you been vacinated for Covid-19: Yes PHQ-9 PHQ-2 Over the last 2 weeks, how often have you been bothered by any of the following problems? 1. Little interest or pleasure in doing things: not at all 2. Feeling down, depressed, or hopeless: not at all Total score: 0 PHQ-9 3. Trouble falling or staying asleep, or sleeping too much: Not at all 4. Feeling tired or having little energy: Not at all 5. Poor appetite or overeating: Not at all 6. Feeling bad about yourself - or that you are a failure or have let yourself or your family down: Not at all 7. Trouble concentrating on things, such as reading the newspaper or watching television: Not at all 8. Moving or speaking so slowly that other people could have noticed? - Or the opposite - being so fidgety or restless that you have been moving around a lot more than usual: not at all 9. Thoughts that you would be better off or of hurting yourself in some way: Not at all Total score: 0 If you checked off any problems, how difficult have these problems made it for you to do your work, take care of things at home, or get along with other people?: not difficult at all Source: Developed by Drs. Jim Palumbo, Elba Cai, Titi Freeman and colleagues, with an educational mamie from [employer]. 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 No CTX/LOF/VB. No NIELSON/VS, Epig/RUQ pain. Reports daily nausea, improved with eating, increased appetite. History of blighted ovum treated with suction curettage December 2023. Ultrasound (10/07/2024): FHR 165 bpm, CRL 8w1d, round gestational sac. Assessment & Plan: [id number] at 9w2d. Intrauterine confirmed. Nausea likely with reflux component. 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 No complaints or concerns reported. Denies nausea or other symptoms. heart tones 151 bpm. Ultrasound shows appropriate anatomy including head, trunk, stomach, and extremities. Genetic screening negative for trisomies, SMA, Fragile X, and cystic fibrosis; sex consistent with male. Routine labs including CBC, HIV, hepatitis panel, and antibody screen were unremarkable. Plan: Problem List: 13w4d, . Follow-up in 4 weeks. Patient will be contacted by [facility] to schedule detailed anatomy ultrasound around 20 weeks. Reviewed precautions, movement expectations, and importance of diet and hydration. Routine education provided. - Date: 10/09/2024 - Hepatitis B: Negative - Hepatitis C: Negative - Atypical antibodies: Non-reactive - Rubella: Immune - Blood group: O-positive - Antibody screen: Negative - HIV: Negative - Gonorrhea: Intermediate-negative - CBC: Hemoglobin 11.6 g/dL, Hematocrit 34.9%, Platelets 200.6 K/?L - NIPT (Non-Invasive Testing): Negative for trisomies and chromosomal abnormalities, sex consistent with male - SMA (Spinal Muscular Atrophy) testing: Negative - Fragile X testing: Negative - Cystic Fibrosis screening: Negative 12/02/24 <del>?</del> 17w 2d 134.774 kg 128/72 absent unknown 144 at 17w2d, RUBY 05/10/25. Routine care. Denies nausea/vomiting, taking vitamins. Bedside US: FHR 144, normal anatomy/movement, placenta/fluid/cord normal. Awaiting [facility] Level 2 anatomy scan referral (~20w), GTT at next visit, continue vitamins, FU 4w, call if no referral contact in 2w. 01/02/25 <del>?</del> 21w 5d 132.619 kg 138/80 absent unknown 22 139 active - Mojgan Martinez is a 5 para 3 patient presenting for routine care at 21 weeks and 5 days gestation. - Patient reports feeling tired all the time, which she acknowledges as expected during . - No other specific complaints or concerns reported. - Upcoming anatomy scan ultrasound scheduled at [facility] for the following . - Attend scheduled ultrasound at [facility] on - Provider to call and obtain ultrasound report on Sunday - Complete glucose tolerance test (diabetes test) within 2-3 weeks, before 24-week raheem - Glucose test order provided today, to be completed before next appointment - Follow up appointment scheduled in 4 weeks - Provider to review ultrasound results before next appointment 02/03/25 <del>?</del> 26w 2d 134.83 kg 132/79 absent cephalic 146 26w2d with negative 1hr GTT (130), FHR 146, normal anatomy except limited views, breech, no signs of labor. Plan: Send prescription for preeclampsia prevention, follow-up U/S at [facility] this week, RTC in 4 weeks, monitor diet and weight. 02/20/25 <del>?</del> 28w 5d 135.171 kg 139/77 absent cephalic 29 150 active - Mojgan Martinez is a 5 para 3 at 28 weeks and 5 days gestation presenting for routine visit. - She was hospitalized on February 07 for blood pressure management. - She was started on nifedipine 30 mg once daily for blood pressure control. - She reports feeling tired but notes that the baby is active. - She requests a maternity leave letter from her employer to start immediately. Plan - Continue nifedipine 30mg once daily for blood pressure management - Obtain pre-eclampsia panel including liver and kidney function tests - Obtain third trimester labs including anemia screening - Provide maternity leave letter for employer starting today - Assist with disability paperwork if needed RUBY Calculator Estimated Delivery Date Method Current WG Current Estimate 05/10/25 LMP (Certain) 33w 6d Other Estimates 05/17/25 Ultrasound #1 32w 6d Assessment & Plan Diagnosis / Problem List (1) Uterine size-date discrepancy, first trimester: Status: Acute (2) Maternal care for low transverse scar from previous delivery: Status: Acute Plan Problem List - Hypertension in - at 28 weeks and 5 days gestation Assessment 28-week 5-day 5 para 3 with hypertension requiring antihypertensive therapy with nifedipine 30mg daily, initiated following recent hospitalization on February 07 for elevated blood pressure. Current blood pressure is well-controlled on medication. Patient reports fatigue but confirms active movement. heart rate is normal at 150-151 bpm. Pre-eclampsia workup is indicated given the need for antihypertensive medication during . Plan - Continue nifedipine 30mg once daily for blood pressure management - Obtain pre-eclampsia panel including liver and kidney function tests - Obtain third trimester labs including anemia screening - Provide maternity leave letter for employer starting today - Assist with disability paperwork if needed 1. Progress Reviewed gestational age (28 weeks 5 days), growth, and heart rate (150-151 bpm, normal). Planned frequent visits (every 2 weeks until 36 weeks, then weekly). 2. Instructed patient to monitor movements and report decreases immediately. 3. Testing Counseled on routine third-trimester labs per guidelines. Discussed potential need for ultrasound or monitoring based on risk factors. 4. Preeclampsia Precaution Educated on preeclampsia signs: severe headache, vision changes, right upper quadrant pain, sudden swelling. Advised urgent reporting of symptoms and discussed blood pressure monitoring if high risk. Pre-eclampsia panel ordered due to hypertension requiring medication (nifedipine 30mg daily). 5. Labor Precautions Reviewed labor signs: regular contractions, pelvic pressure, back pain, bleeding, or fluid leakage. Instructed to seek immediate care for these symptoms. 6. Lifestyle and Delivery Preparation Reinforced vitamins, nutrition, and safe activity. Discussed plan, pain management, and . Advised on labor preparation (e.g., hospital bag) and expectations. 7. Psychosocial Support Assessed emotional well-being and offered resources for mental health or parenting support. Provided maternity leave documentation as requested.
[2025-02-20 13:46] VITALS: BP 139/77; PULSE 92; RESP 16; TEMP 36.2; O2SAT 98; BMI 56.2
== END 2025-02-20 14:08 | disposition home or self-care (01) ==
LOC: HODSOBC 13:36
PROVIDERS: Supervising Provider Obstetrics & Gynecology; Visit Provider Obstetrics & Gynecology
DX: O09.893 Supervision of other high risk pregnancies, third trimester (principal); O13.3 Gestational [pregnancy-induced] hypertension without significant proteinuria, third trimester; O26.843 Uterine size-date discrepancy, third trimester; O09.293 Supervision of pregnancy with other poor reproductive or obstetric history, third trimester; O34.211 Maternal care for low transverse scar from previous cesarean delivery; Z3A.28 28 weeks gestation of pregnancy
CPT/HCPCS: 99213; G0463

== ENCOUNTER 2025-03-20 08:33 | Outpatient (AMB) | payer MEDICAID, SELFPAY ==
[2025-03-20 08:35] VITALS: BP 125/78; PULSE 94; RESP 18; TEMP 36.6; O2SAT 98; BMI 55.0
--- NOTE | 2025-03-20 08:35 | OBCLNT_ITS ---
Vital Signs 03/20/25 08:35 Height 1.55 m Height Method Stated Weight 132.165 kg Weight Measurement Method Standing Scale BMI 55.0 BP 125/78 Blood Pressure Source Automatic Cuff Blood Pressure Location Left Upper Arm Position Sitting Respiration 18 Pulse 94 Pulse Source Monitor Temp 97.8 F Temp Source Oral Pulse Oximetry (%) 98 Oxygen Delivery Method Room Air Allergies/Home Meds Allergies & Medications Allergies No Known Allergies Allergy (Unknown, Verified 04/13/25 11:01) Medication Reconciliation vitamins with calcium no.72-iron 27 mg-folic acid 1 mg tablet ( Vitamins Plus Low Iron) 1 tab PO QDAY 90 days #90 tabs 10/07/24 [Rx Confirmed 04/13/25] nifedipine 30 mg tablet,extended release 30 mg PO QDAY 30 days #30 tabs 02/05/25 [Rx Confirmed 04/13/25] Intake Visit Data Collection New Patient or Established: Established Patient (seen at [facility] within 3 years) Reason for Visit:: CARE Seen by Clinical Staff ONLY (RN/MA): No Do You Feel Safe at Home: Yes Authorities Contacted: N/A PCP or OBGYN visit in last 3 months: Yes Hx Now: Yes Are you currently on any form of Control: No Pain Present Currently: No Pain Scale Used: Magallanes-Oropeza/Numerical Pain scale:: 0 Smoking Status Smoking Status: Never smoker Questionnaires Covid-19 Vaccine Questionnaire Has patient been vacinated for Covid-19 Have you been vacinated for Covid-19: No PHQ-9 PHQ-2 Over the last 2 weeks, how often have you been bothered by any of the following problems? 1. Little interest or pleasure in doing things: not at all 2. Feeling down, depressed, or hopeless: not at all Total score: 0 PHQ-9 3. Trouble falling or staying asleep, or sleeping too much: Not at all 4. Feeling tired or having little energy: Not at all 5. Poor appetite or overeating: Not at all 6. Feeling bad about yourself - or that you are a failure or have let yourself or your family down: Not at all 7. Trouble concentrating on things, such as reading the newspaper or watching television: Not at all 8. Moving or speaking so slowly that other people could have noticed? - Or the opposite - being so fidgety or restless that you have been moving around a lot more than usual: not at all 9. Thoughts that you would be better off or of hurting yourself in some way: Not at all Total score: 0 Source: Developed by Drs. Jim Palumbo, Elba Cai, Titi Freeman and colleagues, with an educational mamie from [employer]. 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 No CTX/LOF/VB. No NIELSON/VS, Epig/RUQ pain. Reports daily nausea, improved with eati ng, increased appetite. History of blighted ovum treated with suction curettage December 2023. Ultrasound (10/07/2024): FHR 165 bpm, CRL 8w1d, round gestational sac. Assessment & Plan: [id number] at 9w2d. Intrauterine confirmed. Nausea likely with reflux component. Order initial OB labs: blood type, infec tious screening, genetic testing Schedule follow-up ultrasounds for growt h monitoring Continue vitamins Prescribe reflux medication to [facility] ([place]) [employer] on small frequent meals, avoidin g reflux triggers, upright posture after eating Monitor symptoms and reassess at next visit 11/06/24 -?-?-?-?-?-?-?-?-?-?-?-?- 13w 4d 134.377 kg 136/82 at 13 weeks and 4 days gestation presents for routine follow-up care. No complaints or concerns reported. Denies nausea or other symptoms. heart tones 151 bpm. Ultrasound shows appropriate anatomy including head, trunk, stomach, and extremities. Genetic screening negative for trisomies, SMA, Fragile X, and cystic fibrosis; sex consistent with male. Routine labs including CBC, HIV, hepatitis panel, and antibody screen were unremarkable. Plan: Problem List: 13w4d, . Follow-up in 4 weeks. Patient will be co ntacted by [facility] to schedule detailed anatomy ultrasound around 20 weeks. Reviewed precautions, movement expectations, and importance of diet and hydration. Routine education provided. - Date: 10/09/2024 - Hepatitis B: Negative - Hepatitis C: Negative - Atypical antibodies: Non-reactive - Rubella: Immune - Blood group: O-positive - Antibody screen: Negative - HIV: Negative - Gonorrhea: Intermediate-negative - CBC: Hemoglobin 11.6 g/dL, Hematocri t 34.9%, Platelets 200.6 K/?L - NIPT (Non-Invasive Testing) : Negative for trisomies and chromosomal abnormalities, sex consistent with male - SMA (Spinal Muscular Atrophy) testin g: Negative - Fragile X testing: Negative - Cystic Fibrosis screening: Negative 12/02/24 -?-?-?-?-?-?-?-?-?-?-?-?- 17w 2d 134.774 kg 128/72 absent unknown 144 at 17w2d, RUBY 05/10/25. Routine care. Denies nausea/vomiting, taking vitamins. Bedside US: FHR 144, normal anatomy/movement, placenta/fluid/cord normal. Herrera reeves [facility] Level 2 anatomy scan referral (~20w), GTT at next visit, continue vitamins, FU 4w, call if no referral contact in 2w. 01/02/25 -?-?-?-?-?-?-?-?-?-?-?--?- 21w 5d 132.619 kg 138/80 02/03/25 -?-?-?-?-?-?-?-?-?-?-?-?- 26w 2d 134.83 kg 132/79 absent cephalic 146 26w2d with negative 1hr GTT (130), FHR 146, normal anatomy except limited views, breech, no signs of labor. Plan: Send presc ription for preeclampsia prevention, follow-up U/S at [facility] this week, RTC in 4 weeks, monitor diet and weight. 02/20/25 -?-?-?-?-?-?-?-?-?-?-?-?- 28w 5d 135.171 kg 139/77 03/20/25 -?-?-?-?-?-?-?-?-?-?-?-?- 32w 5d 132.165 kg 125/78 04/06/25 -?-?-?-?-?-?-?-?-?-?-?-?- 35w 1d 135.284 kg 123/75 RUBY Calculator Estimated Delivery Date Method Current WG Current Estimate 05/10/25 LMP (Certain) 36w 5d Other Estimates 05/17/25 Ultrasound #1 35w 5d Office Procedures OBC Clinic LOC & Office Proc's Nursing/Assessment Patient Status: Established Patient OB Clinic Nursing Assessment: Medication Reconciliation, Update PMH in EMR and Vital Signs OB Clinic Coordination of Care: Complex Care and Chronic Disease 1-5, Consent,records obtained, informed consent, Education Simp Pt/Fam, 1 Ins Authorization, Lab and Imaging orders, Results/Orders obtained and Staff clarify orders Special Needs: Heart tones Established Patient Charge Established Patient Point Assignment: 150 Established Patient Point Charge: EP Level 4 (120-155) Assessment & Plan Diagnosis / Problem List (1) Maternal care for low transverse scar from previous delivery: Status: Acute (2) Gestational hypertension: Status: Acute Plan Problem List - Gestational hypertension - History of Pre-eclampsia - Breech presentation - Previous section Assessment at 32 weeks and 5 days gestation presenting for routine visit. History of gestational hypertension, currently managed with nifedipine 30mg, with stable blood pressure. Previous preeclampsia panel was negative. Fetus was noted to be in breech presentation on prior ultrasound. Patient is a previous section candidate. heart rate auscultated at 150 bpm, within normal range. Patient denies contractions. Planned delivery at 37-38 weeks due to hypertensive condition. Awaiting upcoming ultrasound at [facility] for assessment of weight, amniotic fluid, and other parameters. Plan - Schedule between 37-38 weeks due to gestational hypertension - Continue nifedipine 30mg for blood pressure control - Perform Group B Streptococcus culture swab at next visit - Await results of upcoming ultrasound at [facility] to assess baby's weight and fluid - Clinician to call patient with scheduled date 1. Progress Reviewed gestational age (32 weeks and 5 days), growth, and heart rate (150 bpm, normal). Planned frequent visits (every 2 weeks until 36 weeks, then weekly). 2. Instructed patient to monitor movements and report decreases immediately. 3. Testing Counseled on routine third-trimester labs per guidelines (Group B strep culture planned for next visit). Discussed potential need for ultrasound or monitoring based on risk factors ([facility] ultrasound scheduled end of March to check baby's weight and fluid). 4. Preeclampsia Precaution Educated on preeclampsia signs: severe headache, vision changes, right upper quadrant pain, sudden swelling. Advised urgent reporting of symptoms and discussed blood pressure monitoring if high risk (patient has history of gestational hypertension, currently on nifedipine 30mg, preeclampsia panel negative). 5. Labor Precautions Reviewed labor signs: regular contractions, pelvic pressure, back pain, bleeding, or fluid leakage. Instructed to seek immediate care for these symptoms. 6. Lifestyle and Delivery Preparation Reinforced vitamins, nutrition, and safe activity. Discussed plan, pain management, and ( scheduled due to previous and delivery goal of 37-38 weeks due to blood pressure). Advised on labor preparation (e.g., hospital bag) and expectations. 7. Psychosocial Support Assessed emotional well-being and offered resources for mental health or parenting support.
== END 2025-03-20 09:10 | disposition home or self-care (01) ==
LOC: HODSOBC 08:33
PROVIDERS: Supervising Provider Obstetrics & Gynecology; Visit Provider Obstetrics & Gynecology
DX: O09.293 Supervision of pregnancy with other poor reproductive or obstetric history, third trimester (principal); O34.211 Maternal care for low transverse scar from previous cesarean delivery; O09.893 Supervision of other high risk pregnancies, third trimester; O13.3 Gestational [pregnancy-induced] hypertension without significant proteinuria, third trimester; O32.1XX0 Maternal care for breech presentation, not applicable or unspecified; Z3A.32 32 weeks gestation of pregnancy; Z87.59 Personal history of other complications of pregnancy, childbirth and the puerperium
CPT/HCPCS: 99214; G0463

== ENCOUNTER 2025-04-06 08:19 | Outpatient (AMB) | payer MEDICAID, SELFPAY ==
--- NOTE | 2025-04-06 08:37 | AMB.OBVISIT ---
Vital Signs 04/06/25 08:41 Height 1.55 m Height Method Stated Weight 135.284 kg Weight Measurement Method Standing Scale BMI 56.3 BP 123/75 Blood Pressure Source Automatic Cuff Blood Pressure Location Left Upper Arm Position Sitting Respiration 16 Pulse 79 Pulse Source Monitor Temp 97.7 F Temp Source Oral Pulse Oximetry (%) 97 Oxygen Delivery Method Room Air Allergies/Home Meds Allergies & Medications Allergies No Known Allergies Allergy (Unknown, Verified 04/06/25 08:42) Medication Reconciliation vitamins with calcium no.72-iron 27 mg-folic acid 1 mg tablet ( Vitamins Plus Low Iron) 1 tab PO QDAY 90 days #90 tabs 10/07/24 [Rx Confirmed 04/06/25] nifedipine 30 mg tablet,extended release 30 mg PO QDAY 30 days #30 tabs 02/05/25 [Rx Confirmed 04/06/25] Intake Visit Data Collection New Patient or Established: Established Patient (seen at [facility] within 3 years) Reason for Visit:: CARE Seen by Clinical Staff ONLY (RN/MA): No Head 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 Clerk 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: No Do You Feel Safe at Home: Yes Authorities Contacted: N/A PCP or OBGYN visit in last 3 months: Yes Hx Now: Yes Are you currently on any form of Control: No Pain Present Currently: No Pain Scale Used: Magallanes-Oropeza/Numerical Pain scale:: 0 Smoking Status Smoking Status: Never smoker Would you like additional Smoking Cessation Counseling?: No Immunizations Flu Vaccine in the Last 12 Months: No Flu Vaccine Exclusion Criteria: Refused by Patient Questionnaires Covid-19 Vaccine Questionnaire Has patient been vacinated for Covid-19 Have you been vacinated for Covid-19: Yes PHQ-9 PHQ-2 Over the last 2 weeks, how often have you been bothered by any of the following problems? 1. Little interest or pleasure in doing things: not at all 2. Feeling down, depressed, or hopeless: not at all Total score: 0 PHQ-9 3. Trouble falling or staying asleep, or sleeping too much: Not at all 4. Feeling tired or having little energy: Not at all 5. Poor appetite or overeating: Not at all 6. Feeling bad about yourself - or that you are a failure or have let yourself or your family down: Not at all 7. Trouble concentrating on things, such as reading the newspaper or watching television: Not at all 8. Moving or speaking so slowly that other people could have noticed? - Or the opposite - being so fidgety or restless that you have been moving around a lot more than usual: not at all 9. Thoughts that you would be better off or of hurting yourself in some way: Not at all Total score: 0 Source: Developed by Drs. Jim Palumbo, Elba Cai, Titi Freeman and colleagues, with an educational mamie from [employer]. 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 No CTX/LOF/VB. No NIELSON/VS, Epig/RUQ pain. Reports daily nausea, improved with eating, increased appetite. History of blighted ovum treated with suction curettage December 2023. Ultrasound (10/07/2024): FHR 165 bpm, CRL 8w1d, round gestational sac. Assessment & Plan: [id number] at 9w2d. Intrauterine confirmed. Nausea likely with reflux component. Order initial OB labs: blood type, infectious screening, genetic testing Schedule follow-up ultrasounds for growth monitoring Continue vitamins Prescribe reflux medication to [facility] ([place]) [employer] on small frequent meals, avoiding reflux triggers, upright posture after eating Monitor symptoms and reassess at next visit 11/06/24 <del>?</del> 13w 4d 134.377 kg 136/82 at 13 weeks and 4 days gestation presents for routine follow-up care. No complaints or concerns reported. Denies nausea or other symptoms. heart tones 151 bpm. Ultrasound shows appropriate anatomy including head, trunk, stomach, and extremities. Genetic screening negative for trisomies, SMA, Fragile X, and cystic fibrosis; sex consistent with male. Routine labs including CBC, HIV, hepatitis panel, and antibody screen were unremarkable. Plan: Problem List: 13w4d, . Follow-up in 4 weeks. Patient will be contacted by [facility] to schedule detailed anatomy ultrasound around 20 weeks. Reviewed precautions, movement expectations, and importance of diet and hydration. Routine education provided. - Date: 10/09/2024 - Hepatitis B: Negative - Hepatitis C: Negative - Atypical antibodies: Non-reactive - Rubella: Immune - Blood group: O-positive - Antibody screen: Negative - HIV: Negative - Gonorrhea: Intermediate-negative - CBC: Hemoglobin 11.6 g/dL, Hematocrit 34.9%, Platelets 200.6 K/?L - NIPT (Non-Invasive Testing): Negative for trisomies and chromosomal abnormalities, sex consistent with male - SMA (Spinal Muscular Atrophy) testing: Negative - Fragile X testing: Negative - Cystic Fibrosis screening: Negative 12/02/24 <del>?</del> 17w 2d 134.774 kg 128/72 absent unknown 144 at 17w2d, RUBY 05/10/25. Routine care. Denies nausea/vomiting, taking vitamins. Bedside US: FHR 144, normal anatomy/movement, placenta/fluid/cord normal. Awaiting [facility] Level 2 anatomy scan referral (~20w), GTT at next visit, continue vitamins, FU 4w, call if no referral contact in 2w. 01/02/25 <del>?</del> 21w 5d 132.619 kg 138/80 absent unknown 22 139 active - Mojgan Martinez is a 5 para 3 patient presenting for routine care at 21 weeks and 5 days gestation. - Patient reports feeling tired all the time, which she acknowledges as expected during . - No other specific complaints or concerns reported. - Upcoming anatomy scan ultrasound scheduled at [facility] for the following . - Attend scheduled ultrasound at [facility] on - Provider to call and obtain ultrasound report on Sunday - Complete glucose tolerance test (diabetes test) within 2-3 weeks, before 24-week raheem - Glucose test order provided today, to be completed before next appointment - Follow up appointment scheduled in 4 weeks - Provider to review ultrasound results before next appointment 02/03/25 <del>?</del> 26w 2d 134.83 kg 132/79 absent cephalic 146 26w2d with negative 1hr GTT (130), FHR 146, normal anatomy except limited views, breech, no signs of labor. Plan: Send prescription for preeclampsia prevention, follow-up U/S at [facility] this week, RTC in 4 weeks, monitor diet and weight. 02/20/25 <del>?</del> 28w 5d 135.171 kg 139/77 absent cephalic 29 150 active - Mojgan Martinez is a 5 para 3 at 28 weeks and 5 days gestation presenting for routine visit. - She was hospitalized on February 07 for blood pressure management. - She was started on nifedipine 30 mg once daily for blood pressure control. - She reports feeling tired but notes that the baby is active. - She requests a maternity leave letter from her employer to start immediately. Plan - Continue nifedipine 30mg once daily for blood pressure management - Obtain pre-eclampsia panel including liver and kidney function tests - Obtain third trimester labs including anemia screening - Provide maternity leave letter for employer starting today - Assist with disability paperwork if needed 04/06/25 <del>?</del> 35w 1d 135.284 kg 123/75 absent cephalic 36 145 active - Mojgan Martinez is a 35-week and 1-day patient, 5 para 3013, presenting for routine visit. - She has a history of contractions and gestational hypertension. - Patient is currently on nifedipine for management of her gestational hypertension. - She has a history of 2 previous sections. - Scheduled for section on April 20 at 7:30 AM due to gestational hypertension and history of 2 previous sections - Weekly visits from now until delivery - Group B Strep culture to be performed at next visit - Surgical consent form to be completed with March (30 days prior to surgery requirement) - Continue current nifedipine therapy for gestational hypertension RUBY Calculator Estimated Delivery Date Method Current WG Current Estimate 05/10/25 LMP (Certain) 35w 1d Other Estimates 05/17/25 Ultrasound #1 34w 1d Office Procedures OBC Clinic LOC & Office Proc's Nursing/Assessment Patient Status: Established Patient OB Clinic Nursing Assessment: Medication Reconciliation, Update PMH in EMR and Vital Signs OB Clinic Coordination of Care: Complex Care and Chronic Disease 1-5, Education Complex Pt/Fam, Consent,records obtained, informed consent, Lab and Imaging orders, Results/Orders obtained and Staff clarify orders Special Needs: Heart tones Established Patient Charge Established Patient Point Assignment: 140 Established Patient Point Charge: EP Level 4 (120-155) Assessment & Plan Diagnosis / Problem List (1) Maternal care for low transverse scar from previous delivery: Status: Acute Plan Problem List - Gestational hypertension - contractions - at 35 weeks and 1 day Assessment 35-week and 1-day patient ( 5, Para 3013) with gestational hypertension currently managed on nifedipine, presenting for routine visit. Patient has history of contractions and two previous sections. Recent ultrasound from April 01 shows estimated weight of 6 pounds 12 ounces at 97th percentile. heart rate documented at 145 bpm, which is within normal range. Plan - Scheduled for section on April 20 at 7:30 AM due to gestational hypertension and history of 2 previous sections - Weekly visits from now until delivery - Group B Strep culture to be performed at next visit - Surgical consent form to be completed with March (30 days prior to surgery requirement) - Continue current nifedipine therapy for gestational hypertension 1. Progress Reviewed gestational age, growth, and heart rate. Planned frequent visits (every 2 weeks until 36 weeks, then weekly). 2. Instructed patient to monitor movements and report decreases immediately. 3. Testing Counseled on routine third-trimester labs per guidelines. Discussed potential need for ultrasound or monitoring based on risk factors. 4. Preeclampsia Precaution Educated on preeclampsia signs: severe headache, vision changes, right upper quadrant pain, sudden swelling. Advised urgent reporting of symptoms and discussed blood pressure monitoring if high risk. 5. Labor Precautions Reviewed labor signs: regular contractions, pelvic pressure, back pain, bleeding, or fluid leakage. Instructed to seek immediate care for these symptoms. 6. Lifestyle and Delivery Preparation Reinforced vitamins, nutrition, and safe activity. Discussed plan, pain management, and . Advised on labor preparation (e.g., hospital bag) and expectations. 7. Psychosocial Support Assessed emotional well-being and offered resources for mental health or parenting support.
[2025-04-06 08:41] VITALS: BP 123/75; PULSE 79; RESP 16; TEMP 36.5; O2SAT 97; BMI 56.3
== END 2025-04-06 09:34 | disposition home or self-care (01) ==
LOC: HODSOBC 08:20
PROVIDERS: Supervising Provider Obstetrics & Gynecology; Visit Provider Obstetrics & Gynecology
DX: O09.293 Supervision of pregnancy with other poor reproductive or obstetric history, third trimester (principal); O34.211 Maternal care for low transverse scar from previous cesarean delivery; O09.893 Supervision of other high risk pregnancies, third trimester; O13.3 Gestational [pregnancy-induced] hypertension without significant proteinuria, third trimester; Z3A.35 35 weeks gestation of pregnancy
CPT/HCPCS: 99214; G0463

== ENCOUNTER 2025-04-13 10:49 | Outpatient (AMB) | payer MEDICAID, SELFPAY ==
[2025-04-13 11:00] VITALS: BP 128/83; PULSE 91; RESP 18; TEMP 37.1; O2SAT 96; BMI 56.7
--- NOTE | 2025-04-13 11:00 | OBCLNT_ITS ---
Vital Signs 04/13/25 11:00 Height 1.55 m Height Method Stated Weight 136.305 kg Weight Measurement Method Standing Scale BMI 56.7 BP 128/83 Blood Pressure Source Automatic Cuff Blood Pressure Location Left Upper Arm Position Sitting Respiration 18 Pulse 91 Pulse Source Monitor Temp 98.8 F Temp Source Oral Pulse Oximetry (%) 96 Oxygen Delivery Method Room Air Allergies/Home Meds Allergies & Medications Allergies No Known Allergies Allergy (Unknown, Verified 04/13/25 11:01) Medication Reconciliation vitamins with calcium no.72-iron 27 mg-folic acid 1 mg tablet ( Vitamins Plus Low Iron) 1 tab PO QDAY 90 days #90 tabs 10/07/24 [Rx Confirmed 04/13/25] nifedipine 30 mg tablet,extended release 30 mg PO QDAY 30 days #30 tabs 02/05/25 [Rx Confirmed 04/13/25] Intake Visit Data Collection New Patient or Established: Established Patient (seen at [facility] within 3 years) Reason for Visit:: CARE/GBS DUE Seen by Clinical Staff ONLY (RN/MA): No Highway Maintenance 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 Required: No Do You Feel Safe at Home: Yes Authorities Contacted: N/A PCP or OBGYN visit in last 3 months: Yes Hx Now: Yes Are you currently on any form of Control: No Pain Present Currently: No Pain Scale Used: Magallanes-Oropeza/Numerical Pain scale:: 0 Smoking Status Smoking Status: Never smoker Immunizations Flu Vaccine in the Last 12 Months: No Flu Vaccine Exclusion Criteria: Refused by Patient Questionnaires Covid-19 Vaccine Questionnaire Has patient been vacinated for Covid-19 Have you been vacinated for Covid-19: Yes PHQ-9 PHQ-2 Over the last 2 weeks, how often have you been bothered by any of the following problems? 1. Little interest or pleasure in doing things: not at all 2. Feeling down, depressed, or hopeless: not at all Total score: 0 PHQ-9 3. Trouble falling or staying asleep, or sleeping too much: Not at all 4. Feeling tired or having little energy: Not at all 5. Poor appetite or overeating: Not at all 6. Feeling bad about yourself - or that you are a failure or have let yourself or your family down: Not at all 7. Trouble concentrating on things, such as reading the newspaper or watching television: Not at all 8. Moving or speaking so slowly that other people could have noticed? - Or the opposite - being so fidgety or restless that you have been moving around a lot more than usual: not at all 9. Thoughts that you would be better off or of hurting yourself in some way: Not at all Total score: 0 Source: Developed by Drs. Jim Palumbo, Elba Cai, Titi Freeman and colleagues, with an educational mamie from [employer]. 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: Past Medical History Past Medical History: No Hx Neurological Disorders, No Hx Cardiac Disorders (HX OF PREECLAMPSIA 2015), No Hx Cancer, No Hx Blood Disorders, No Hx Gastrointestinal Disorders, No Hx Renal Disease, No Hx Diabetes Mellitus Type 1 and No Hx Diabetes Mellitus Type 2 Care OB Visit Log OB Flowsheet Initial Weight: Not Recorded Date -?-?-?-?-?-?-?-?-?-?-?-?- EGA Weight BP Alb Glu CTX Pres Fundal ht FHR Mov Dilation Station Effacement Hx Notes Visit Note 10/07/24 -?-?-?-?-?-?-?-?-?-?-?-?- 9w 2d 134.944 kg 128/82 165 Mojgan Martinez, [id number] at 9w2d gestation (RUBY: 05/10/2025), presents for care. No CTX/LOF/VB. No NIELSON/VS, Epig/RUQ pain. Reports daily nausea, improved with eati ng, increased appetite. History of blighted ovum treated with suction curettage December 2023. Ultrasound (10/07/2024): FHR 165 bpm, CRL 8w1d, round gestational sac. Assessment & Plan: [id number] at 9w2d. Intrauterine confirmed. Nausea likely with reflux component. Order initial OB labs: blood type, infec tious screening, genetic testing Schedule follow-up ultrasounds for growt h monitoring Continue vitamins Prescribe reflux medication to [facility] ([place]) Tableau Lead on small frequent meals, avoidin g reflux triggers, upright posture after eating Monitor symptoms and reassess at next visit 11/06/24 -?-?-?-?-?-?-?-?-?-?-?-?- 13w 4d 134.377 kg 136/82 at 13 weeks and 4 days gestation presents for routine follow-up care. No complaints or concerns reported. Denies nausea or other symptoms. heart tones 151 bpm. Ultrasound shows appropriate anatomy including head, trunk, stomach, and extremities. Genetic screening negative for trisomies, SMA, Fragile X, and cystic fibrosis; sex consistent with male. Routine labs including CBC, HIV, hepatitis panel, and antibody screen were unremarkable. Plan: Problem List: 13w4d, . Follow-up in 4 weeks. Patient will be co [facility] by [facility] to schedule detailed anatomy ultrasound around 20 weeks. Reviewed precautions, movement expectations, and importance of diet and hydration. Routine education provided. - Date: 10/09/2024 - Hepatitis B: Negative - Hepatitis C: Negative - Atypical antibodies: Non-reactive - Rubella: Immune - Blood group: O-positive - Antibody screen: Negative - HIV: Negative - Gonorrhea: Intermediate-negative - CBC: Hemoglobin 11.6 g/dL, Hematocri t 34.9%, Platelets 200.6 K/?L - NIPT (Non-Invasive Testing) : Negative for trisomies and chromosomal abnormalities, sex consistent with male - SMA (Spinal Muscular Atrophy) testin g: Negative - Fragile X testing: Negative - Cystic Fibrosis screening: Negative 12/02/24 -?-?-?-?-?-?-?-?-?-?-?-?- 17w 2d 134.774 kg 128/72 absent unknown 144 at 17w2d, RUBY 05/10/25. Routine care. Denies nausea/vomiting, taking vitamins. Bedside US: FHR 144, normal anatomy/movement, placenta/fluid/cord normal. Herrera reeves [facility] Level 2 anatomy scan referral (~20w), GTT at next visit, continue vitamins, FU 4w, call if no referral contact in 2w. 01/02/25 -?-?-?-?-?-?-?-?-?-?-?-?- 21w 5d 132.619 kg 138/80 absent unknown 22 139 active - Mojgan Martinez is a 5 para 3 patient presenting for routine care at 21 weeks and 5 days gestation. - Patient reports feeling tired all the time, which she acknowledges as expected during . - No other specific complaints or concer ns reported. - Upcoming anatomy scan ultrasound sched uled at [facility] for the following . - Attend scheduled ultrasound at [facility] on - Provider to call and obtain ultrasound report on Sunday - Complete glucose tolerance test (diabe mando test) within 2-3 weeks, before 24- week raheem - Glucose test order provided today, to be completed before next appointment - Follow up appointment scheduled in 4 w eeks - Provider to review ultrasound results before next appointment 02/03/25 -?-?-?-?-?-?-?-?-?-?-?-?- 26w 2d 134.83 kg 132/79 absent cephalic 146 26w2d with negative 1hr GTT (130), FHR 146, normal anatomy except limited views, breech, no signs of labor. Plan: Send presc ription for preeclampsia prevention, follow-up U/S at [facility] this week, RTC in 4 weeks, monitor diet and weight. 02/20/25 -?-?-?-?-?-?-?-?-?-?-?-?- 28w 5d 135.171 kg 139/77 absent cephalic 29 15 0 active - Mojgan Martinez is a 5 para 3 at 28 weeks and 5 days gestation presenting for routine visit. - She was hospitalized on February 07 fo r blood pressure management. - She was started on nifedipine 30 mg on ce daily for blood pressure control. - She reports feeling tired but notes th at the baby is active. - She requests a maternity leave letter from her employer to start immediately. Plan - Continue nifedipine 30mg once daily fo r blood pressure management - Obtain pre-eclampsia panel including l iver and kidney function tests - Obtain third trimester labs including anemia screening - Provide maternity leave letter for aurelia hudson starting today - Assist with disability paperwork if ne eded 03/20/25 -?-?-?-?-?-?-?-?-?-?-?-?- 32w 5d 132.165 kg 125/78 absent cephalic 33 14 5 active - She reports taking her prescribed nifedipine-30 for blood pressure management as directed. - Patient confirms baby has been active with no contractions reported. - She is currently on maternity leave. - Patient has an upcoming ultrasound sher eduled at [facility] at the end of March. - She denies any current concerns or questions during this visit. - Schedule C- section between 37-38 weeks due to gestational hypertension - Continue nifedipine 30mg for blood pre ssure control - Perform Group B Streptococcus culture swab at next visit - Await results of upcoming ultrasound a t [facility] to assess baby's weight and fluid - Clinician to call patient with dorothy ed date 04/06/25 -?-?-?-?-?-?-?-?-?-?-?-?- 35w 1d 135.284 kg 123/75 absent cephalic 36 14 5 active - Mojgan Martinez is a 35-week and 1-day patient, 5 para 3013, presenting for routine visit. - She has a history of contracti ons and gestational hypertension. - Patient is currently on nifedipine for management of her gestational hypertension. - She has a history of 2 previous sections. - Scheduled for section on April 20 at 7:30 AM due to gestational hypertension and history of 2 previous sections - Weekly visits from now until delivery - Group B Strep culture to be performed at next visit - Surgical consent form to be completed with March (30 days prior to surgery requirement) - Continue current nifedipine therapy fo r gestational hypertension 04/13/25 -?-?-?-?-?-?-?-?-?-?-?-?- 36w 1d 136.305 kg 128/83 absent cephalic 37 14 5 active No contractions, LOF, VB and reports good FM. Denies NIELSON, VC, and epigastric pain. - Group B Strep culture done - Surgical consent form signed earlier f or BTL (30 days prior to surgery requirement) - Continue current nifedipine therapy fo r gestational hypertension RUBY Calculator Estimated Delivery Date Method Current WG Current Estimate 05/10/25 LMP (Certain) 36w 5d Other Estimates 05/17/25 Ultrasound #1 35w 5d Office Procedures O[facility] Clinic LOC & Office Proc's Nursing/Assessment Patient Status: Established Patient OB Clinic Nursing Assessment: Medication Reconciliation, Update PMH in EMR and Vital Signs OB Clinic Coordination of Care: Complex Care and Chronic Disease 1-5, Consent,records obtained, informed consent, Education Simp Pt/Fam, Lab and Imaging orders, Results/Orders obtained and Staff clarify orders Special Needs: Heart tones Miscellaneous Interventions: Culture Specimen Collection Established Patient Charge Established Patient Point Assignment: 150 Established Patient Point Charge: EP Level 4 (120-155) Assessment & Plan Diagnosis / Problem List (1) Gestational hypertension: Status: Acute (2) Maternal care for low transverse scar from previous delivery: Status: Acute (3) Obesity, Class III, BMI 40-49.9 (morbid obesity): Status: Acute
== END 2025-04-13 11:24 | disposition home or self-care (01) ==
LOC: HODSOBC 10:49
PROVIDERS: Supervising Provider Obstetrics & Gynecology; Visit Provider Obstetrics & Gynecology
DX: O09.893 Supervision of other high risk pregnancies, third trimester (principal); O13.3 Gestational [pregnancy-induced] hypertension without significant proteinuria, third trimester; O09.293 Supervision of pregnancy with other poor reproductive or obstetric history, third trimester; O34.211 Maternal care for low transverse scar from previous cesarean delivery; O99.213 Obesity complicating pregnancy, third trimester; E66.813 Obesity, class 3; Z3A.36 36 weeks gestation of pregnancy; Z36.85 Encounter for antenatal screening for Streptococcus B
CPT/HCPCS: 99214; G0463

== ENCOUNTER 2025-04-16 13:42 | Outpatient (RCR) | payer MEDICAID, SELFPAY ==
--- NOTE | 2025-03-12 15:05 | XR_ITS ---
Examination: Biophysical profile, ultrasound Date and time of exam: March 12, 2025 1513 hours INDICATIONS: History gestational hypertension Technique: Multiple transabdominal sonographic images of the pelvis abdomen obtained. Attention is directed to the breathing movement, gross body movement, amniotic fluid volume and tone. Findings: Amniotic fluid index 17.0 cm Total biophysical profile is 8 of 8. breathing movement is 2. Gross body movement is 2. tone is 2. Qualitative amniotic fluid volume is 2 Impression: Biophysical profile is 8 of 8.
[2025-03-12 16:07] VITALS: BP 137/65; PULSE 90; RESP 16; TEMP 36.4
--- NOTE | 2025-03-16 15:58 | XR_ITS ---
Examination: Biophysical profile, ultrasound Date and time of exam: March 16, 2025, 1604 hours INDICATIONS: Diagnosis cholestasis of Technique: Multiple transabdominal sonographic images of the pelvis abdomen obtained. Attention is directed to the breathing movement, gross body movement, amniotic fluid volume and tone. Findings: Amniotic fluid index 15.5 cm Total biophysical profile is 8 of 8. breathing movement is 2. Gross body movement is 2. tone is 2. Qualitative amniotic fluid volume is 2 Impression: Biophysical profile is 8 of 8.
[2025-03-16 17:00] VITALS: BP 140/63; PULSE 90; RESP 16; TEMP 36.7
--- NOTE | 2025-03-19 15:25 | XR_ITS ---
Examination: Biophysical profile, ultrasound Date and time of exam: March 19, 2025, 1536 hours INDICATIONS: Diagnosis cholestasis of Technique: Multiple transabdominal sonographic images of the pelvis abdomen obtained. Attention is directed to the breathing movement, gross body movement, amniotic fluid volume and tone. Findings: Amniotic fluid index 16.5 cm Total biophysical profile is 8 of 8. breathing movement is 2. Gross body movement is 2. tone is 2. Qualitative amniotic fluid volume is 2 Impression: Biophysical profile is 8 of 8.
[2025-03-19 16:48] VITALS: BP 131/68; PULSE 90; RESP 22
--- NOTE | 2025-03-23 15:32 | XR_ITS ---
Examination: Biophysical profile, ultrasound Date and time of exam: March 23, 2025, 1545 hours INDICATIONS: Diagnosis cholestasis of Technique: Multiple transabdominal sonographic images of the pelvis abdomen obtained. Attention is directed to the breathing movement, gross body movement, amniotic fluid volume and tone. Findings: Amniotic fluid index 10.8 cm Total biophysical profile is 8 of 8. breathing movement is 2. Gross body movement is 2. tone is 2. Qualitative amniotic fluid volume is 2 Impression: Biophysical profile is 8 of 8.
[2025-03-23 16:30] VITALS: BP 141/78; PULSE 93; RESP 18
--- NOTE | 2025-03-26 13:41 | XR_ITS ---
Examination: Biophysical profile, ultrasound Date and time of exam: March 26, 2025, 1351 hours INDICATIONS: Diagnosis cholestasis of Technique: Multiple transabdominal sonographic images of the pelvis abdomen obtained. Attention is directed to the breathing movement, gross body movement, amniotic fluid volume and tone. Findings: Amniotic fluid index 10.8 cm Total biophysical profile is 8 of 8. breathing movement is 2. Gross body movement is 2. tone is 2. Qualitative amniotic fluid volume is 2 Impression: Biophysical profile is 8 of 8.
[2025-03-26 15:06] VITALS: BP 132/63; PULSE 82; RESP 16; TEMP 36.6
--- NOTE | 2025-03-30 13:45 | XR_ITS ---
Examination: Biophysical profile, ultrasound Date and time of exam: March 30, 2025, 1359 hours INDICATIONS: Diagnosis cholestasis of Technique: Multiple transabdominal sonographic images of the pelvis abdomen obtained. Attention is directed to the breathing movement, gross body movement, amniotic fluid volume and tone. Findings: Amniotic fluid index 9.1 cm Total biophysical profile is 8 of 8. breathing movement is 2. Gross body movement is 2. tone is 2. Qualitative amniotic fluid volume is 2 Impression: Biophysical profile is 8 of 8.
[2025-03-30 14:46] VITALS: BP 136/69; PULSE 96; RESP 17
--- NOTE | 2025-04-02 13:39 | XR_ITS ---
Examination: Biophysical profile, ultrasound Date and time of exam: April 02, 2025, 1339 hours INDICATIONS: Diagnosis cholestasis of Technique: Multiple transabdominal sonographic images of the pelvis abdomen obtained. Attention is directed to the breathing movement, gross body movement, amniotic fluid volume and tone. Findings: Amniotic fluid index 11.9 cm Total biophysical profile is 8 of 8. breathing movement is 2. Gross body movement is 2. tone is 2. Qualitative amniotic fluid volume is 2 Impression: Biophysical profile is 8 of 8.
[2025-04-02 14:36] VITALS: BP 146/69; PULSE 98; RESP 18
--- NOTE | 2025-04-06 13:49 | XR_ITS ---
Examination: Biophysical profile, ultrasound Date and time of exam: April 06, 2025, 1409 hours INDICATIONS: Diagnosis cholestasis of Technique: Multiple transabdominal sonographic images of the pelvis abdomen obtained. Attention is directed to the breathing movement, gross body movement, amniotic fluid volume and tone. Findings: Amniotic fluid index 8.8 cm Total biophysical profile is 8 of 8. breathing movement is 2. Gross body movement is 2. tone is 2. Qualitative amniotic fluid volume is 2 Impression: Biophysical profile is 8 of 8.
[2025-04-06 14:31] VITALS: BP 145/67; PULSE 86; RESP 16; TEMP 36.8
--- NOTE | 2025-04-09 14:07 | XR_ITS ---
Examination: Biophysical profile, ultrasound Date and time of exam: April 09, 2025, 1414 hours INDICATIONS: Diagnosis intrahepatic cholestasis of Technique: Multiple transabdominal sonographic images of the pelvis abdomen obtained. Attention is directed to the breathing movement, gross body movement, amniotic fluid volume and tone. Findings: Amniotic fluid index 9.3 cm Total biophysical profile is 8 of 8. breathing movement is 2. Gross body movement is 2. tone is 2. Qualitative amniotic fluid volume is 2 Impression: Biophysical profile is 8 of 8.
[2025-04-09 14:43] VITALS: BP 117/55; PULSE 90; RESP 16; TEMP 36.6
--- NOTE | 2025-04-13 13:39 | XR_ITS ---
Examination: Biophysical profile, ultrasound Date and time of exam: 04/13/2025, 1:41 p.m. COMPARISON: BPP 04/09/2025. Technique: Multiple transabdominal sonographic images of the pelvis abdomen obtained. Attention is directed to the breathing movement, gross body movement, amniotic fluid volume and tone. INDICATION: Weekly NST and BPP due to intrahepatic cholestasis Findings: Single live IUP in cephalic position. Total biophysical profile is 8 of 8. breathing movement is 2. Gross body movement is 2. tone is 2. Qualitative amniotic fluid volume is 2 MATT = 13.3 cm. FHR = 136 bpm. Impression: Biophysical profile is 8 of 8, as before.
[2025-04-13 14:00] VITALS: BP 131/69; PULSE 99; RESP 16; TEMP 36.6
--- NOTE | 2025-04-16 13:51 | XR_ITS ---
Examination: Biophysical profile, ultrasound Date and time of exam: 04/16/2025 at 2:03 p.m. INDICATION: Weekly NST and BPP due to intrahepatic cholestasis COMPARISON: US BPP 06/13/2024 Technique: Multiple transabdominal sonographic images of the pelvis abdomen obtained. Attention is directed to the breathing movement, gross body movement, amniotic fluid volume and tone. Findings: Single live IUP in cephalic position. Total biophysical profile is 8 of 8. breathing movement is 2. Gross body movement is 2. tone is 2. Qualitative amniotic fluid volume is 2 MATT: 7.8 cm. FHR: 145 bpm. Impression: Biophysical profile is 8 of 8 as before.
[2025-04-16 14:50] VITALS: BP 154/74; PULSE 84; RESP 18; TEMP 36.7
== END 2025-04-16 23:59 | disposition home or self-care (01) ==
LOC: S4S1 13:42
PROVIDERS: Referring Provider Obstetrics & Gynecology; Visit Provider Obstetrics & Gynecology
DX: O09.93 Supervision of high risk pregnancy, unspecified, third trimester (principal); Z3A.39 39 weeks gestation of pregnancy
CPT/HCPCS: 59025; 76819

== ENCOUNTER 2025-04-20 05:33 | Inpatient (IN) | payer MEDICAID, SELFPAY ==
[2025-04-20] VITALS (14 sets, daily range): BP systolic 102–167; BP diastolic 63–99; PULSE 71–103; RESP 14–26; TEMP 36.6–36.8; O2SAT 96–100; BMI 55.5
[2025-04-20 06:26] LABS: Basophils # (Auto) 0.0 Thou/mm3 (0.0-0.2); Basophils % (Auto) 0 % (0-2.5); Eosinophils # (Auto) 0.1 Thou/mm3 (0.0-0.5); Eosinophils % (Auto) 1 % (0-10); Hematocrit 30.6 % (36.0-46.0); Hemoglobin 10.4 g/dL (12.0-16.0); Immature Granulocytes Auto 0.13 Thou/mm3 (0.00-0.00); Lymphocytes # (Auto) 2.4 Thou/mm3 (1.0-4.8); Lymphocytes % (Auto) 20 % (10-50); Mean Corpuscular HGB Conc 34.0 g/dl (31.0-37.0); Mean Corpuscular Hemoglobin 29.3 pg (25.0-35.0); Mean Corpuscular Volume 86 fL (80-100); Monocytes # (Auto) 0.7 Thou/mm3 (0.0-0.8); Monocytes % (Auto) 6 % (0-12); Neutrophils # (Auto) 8.6 Thou/mm3 (1.8-7.7); Neutrophils % (Auto) 72 % (37-80); Nucleated Red Blood Cell # 0.00 Thou/mm3 (0.00-0.00); Nucleated Red Blood Cell % 0 /100 WBC (0); Platelet Count 189 Thou/mm3 (140-440); RDW Standard Deviation 44.2 fL (36.4-46.3); Red Blood Count 3.55 Miln/mm3 (4.00-5.20); White Blood Count 12.0 Thou/mm3 (3.6-11.0)
--- NOTE | 2025-04-20 06:59 | ESHP_ITS ---
Documentation for date of: 04/20/25 OB Labor/Induct. HPI History of Present Illness Chief complaint: scheduled RLTCS with BTL : 5 Para: 3 Term pregnancies: 3 pregnancies: 0 Living children: 3 History of Abortions: Spontaneous and Elective: 1 History of Vaginal deliveries: 0 History of sections: Yes (x3) History of : No RUBY: 05/10/25 Gestational Age (weeks): 37 Gestational Age (days): 1 History of present illness: Patient presents for scheduled RLTCS with BTL. No LOF. No vaginal bleeding. Normal movement. No NIELSON/vision changes/RUQ pain. History of Present Dating criteria: based on 1st trimester US only Adequate Care: Yes Abnormal ultrasound findings: Ultrasound with MFM at 30wk showed unilateral MVM Narrative: Hx of 3 sections at term Hx of D&C for blighted ovum Hx of pre-eclampsia with 1st Current complicated by: -CHTN, taking nifedipine 30mg XL PO QD and ASA -Hx of pre-eclampsia with 1st -Current BMI 55.6 -Hx of section x3. Counseled and consented regarding BTL in office, consent form signed per documentation Labs Narrative: Date: 10/09/2024 - Hepatitis B: Negative - Hepatitis C: Negative - Atypical antibodies: Non-reactive - Rubella: Immune - Blood group: O-positive - Antibody screen: Negative - HIV: Negative - Gonorrhea: Intermediate-negative - CBC: Hemoglobin 11.6 g/dL, Hematocrit 34.9%, Platelets 200.6 K/?L - NIPT (Non-Invasive Testing): Negative for trisomies and chromosomal abnormalities, sex consistent with male - SMA (Spinal Muscular Atrophy) testing: Negative - Fragile X testing: Negative - Cystic Fibrosis screening: Negative 1hr glucola: 130 Review of Systems Review of Systems Narrative Review of Systems: Review of Systems Systems Reviewed: All systems reviewed, normal except as documented Constitutional Constitutional: Denies body ache(s), Denies chills, Denies fever(s) and Denies headache(s) ENT Ears, Nose, Mouth, and Throat: Denies headache(s) and Denies vertigo Cardiovascular Cardiovascular: Denies chest pain, Denies palpitations, Denies dyspnea and Denies syncope Respiratory Respiratory: Denies cough, Denies dyspnea Gastrointestinal Gastrointestinal: Denies nausea and Denies vomiting Neurologic Neurologic: Denies convulsions, Denies headache(s), Denies other visual disturbances, Denies syncope and Denies vertigo Past Medical History Family History OTHER FAMILY HX: non-contributory Surgical History SURGICAL: Positive Section (x3) OTHER SURGICAL HX: D&C for blighted ovum Social History SOCIAL: Good social support. Has 3 children. No tobacco/ETOH/illicit drug use Past Medical History Comments PMH COMMENT: -CHTN -Hx of pre-eclampsia with 1st -Current BMI 55.6 Meds Home Medications and Allergies Allergies Allergy/AdvReac Type Severity Reaction Status Date / Time No Known Allergies Allergy Unknown Verified 04/20/25 05:39 OB Exam Physical Exam Vital signs: Pulse BP 103 H 133/66 H 04/20/25 05:55 04/20/25 05:55 Narrative: General: well developed, well nourished, no acute distress, conversant Cardiac: normal heart rate Lungs: breathing without distress Abdomen: soft, obese, gravid, non-tender, no rebound or guarding Extremities: trace edema BLE Detailed Labor and Delivery Exam Membranes: intact monitor accelerations: 15x15 monitor decelerations: None skilled nursing variability: Moderate (11-25) OB Results Labs 04/20/25 06:16 04/20/25 06:10 Labs: Short CBC 04/20/25 Range/Units 06:16 WBC 12.0 H (3.6-11.0) Thou/mm3 Hgb 10.4 L (12.0-16.0) g/dL Hct 30.6 L (36.0-46.0) % Plt Count 189 (140-440) Thou/mm3 OB Assessment & Plan Assessment and Plan (1) Maternal care for low transverse scar from previous delivery: Status: Acute Assessment and plan: Mojgan is a 34yo with SIUP at 37&1wk presenting for scheduled RLTCS with BTL. Vitals wnl, benign exam. Reassuring assessment. PMhx/ complicated by: -CHTN, taking nifedipine 30mg XL PO QD and ASA -Hx of pre-eclampsia with 1st -Current BMI 55.6 -Hx of section x3 -Counseled and consented regarding BTL in office, consent form signed 03/11/25 and is on chart. Patient confirms today that she is still 100% sure that she is done with childbearing and desires permanent sterilization. Plan: -Admit to L&D -Establish IV, routine labs -NPO -Counseled/consented re: section and bilateral tubal ligation via salpingectomy. Discussed all r/b/a to include: bleeding (possible need for blood transfusion), infection (subcutaneous, deeper layers or uterine with possible need for prolonged admission or re-admission for IV antibiotics, I&D with wound packing, etc), injury to nearby structures such as bladder, bowel, ureters, blood vessels, nerves with possible need for re-operation, pain, injury to baby, hysterectomy, DVT/PE, . For bilateral tubal ligation, very small <1% risk of it failing and becoming again, but if were to occur, much higher risk for ectopic . Answered all questions to patient and their support person's satisfaction. -IV abx ppx: Ancef 3g IV x1 -Nursing and anesthesia team aware of plan for section. Will proceed to OR when team is ready (2) Hypertension complicating in third trimester: Status: Acute (3) Obesity affecting in third trimester: Status: Acute (4) History of pre-eclampsia in prior , currently in third trimester: Status: Acute (3) Obesity affecting in third trimester Qualifiers: Obesity type affecting : unspecified obesity Qualified Code(s): O 99.213 - Obesity complicating , third trimester
[2025-04-20] MEDS: METOCLOPRAMIDE INJ 5 MG/ML VIAL 2 ML 10 MG IVP (07:12)
[2025-04-20] MEDS: FAMOTIDINE INJ 10 MG/ML VIAL 2 ML 20 MG IV (07:12)
[2025-04-20] MEDS: RINGERS LACTATED 1000 ML 1,000 ML 100 ML IV (07:12)
[2025-04-20] MEDS: ceFAZolin/D5W 2 GM IV 2 GM/100 ML BAG IV ×3 (07:13→21:26)
[2025-04-20 07:16] LABS: Alanine Aminotransferase 8 U/L (10-49); Albumin, Serum 4.2 gm/dL (3.5-5.0); Albumin/Globulin Ratio 2.2 (1.2-2.2); Alkaline Phosphatase 89 U/L (46-116); Anion Gap 11 (7-16); Aspartate Amino Transferase 14 U/L (0-34); BUN/Creatinine Ratio 13 Ratio (12-20); Bilirubin,Total 0.3 mg/dL (0.3-1.2); Blood Urea Nitrogen 5 mg/dL (9-23); Calcium 9.1 mg/dL (8.3-10.6); Calcium (Corrected) 9.1 mg/dL (8.5-10.1); Carbon Dioxide 21.5 mMol/L (20.0-31.0); Chloride 108 mMol/L (98-107); Creatinine (Component) 0.4 mg/dL (0.6-1.3); Estimated Creatinine Clearance 261.6 mL/min (>60); Globulin 1.9 gm/dL (2.3-3.5); Glucose 89 mg/dL (74-106); Osmolality,Calculated 275 (275-295); Potassium 3.7 mMol/L (3.4-5.1); Sodium 140 mMol/L (136-145); Total Protein 6.1 gm/dL (5.7-8.2); eGFR > 60 See Note
[2025-04-20 07:23] LABS: Syphilis Nonreactive (Nonreactive)
--- NOTE | 2025-04-20 09:07 | PC.NURSE ---
0815: Time out completed in OB OR. Pt. received 2gm ancef prior to surgery start. Per MD, pt. to receive a total of 3gm ancef. garageman called to bring 1gm ancef to OB OR per request. 1gm Ancef administered in OB OR by MARIAA Vasquez.
--- NOTE | 2025-04-20 09:39 | PC.NURSE ---
0730: RN at bedside with pt and support person/friend of pt. Support person notified of no recording/photos in OB OR until infant is placed on closest side of curtain by mother with [employer] and told to take photos. No recording of procedure/field.
--- NOTE | 2025-04-20 09:43 | PC.NURSE ---
Per MD no need for prbc units on hold at this time.
--- NOTE | 2025-04-20 09:57 | ESOP_ITS ---
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 She has a history of 3 prior sections. is complicated by CHTN controlled on nifedipine 30mg XL QD as well as hx of pre- eclampsia with 1st and current BMI of 55.6. She was counseled and consented regarding BTL in office, consent form signed 03/11/25 and is on chart. Patient confirms today that she is still 100% sure that she is done with [employer] breajacquelin and desires permanent sterilization. Pre-Op diagnosis: -SIUP at 37w1d -Hx of section x3 -CHTN, taking nifedipine 30mg XL PO QD and ASA -Hx of pre-eclampsia with 1st -Current BMI 55.6 -Satisifed parity with desire for permanent sterilization Post-Op diagnosis: -SIUP at 37w1d -Hx of section x3 -CHTN, taking nifedipine 30mg XL PO QD and ASA -Hx of pre-eclampsia with 1st -Current BMI 55.6 -Satisifed parity with desire for permanent sterilization Anesthesia type: Spinal Fluids: crystalloid Fluid amount (mL): 3,500 Urine output (mL): 200 Specimen: left tube and right tube Findings: Dense scarring in fascial layer, one thin adhesion of omentum within peritoneal cavity, thick anterior uterine wall. Male infant in cephalic presentation, apgars 9/9, weight 3500g, time of 0830 on 04/20/25. Clear amniotic fluid. Normal appearing uterus, ovaries and bilateral fallopian tubes. Complications: none Narrative: After obtaining informed consent, the patient was taken to the operating room. There was reassuring heart rate tracing prior. Spinal anesthesia was administered. A todd catheter was placed and bilateral sequential compression devices were placed. She was then prepped and draped in the normal sterile fashion in the dorsal supine position with left lateral tilt. A timeout was performed to confirm patient name, date of , procedure and indication. The team was in agreement. Spinal anesthesia was found to be adequate using an Allis clamp. Anceph 3g IV x1 were given for prophylaxis. A Pfannenstiel skin incision was then made with the scalpel through prior incision line and carried through to the underlying layer of fascia. The fascia was incised in the midine and the incision was extended laterally with the Thomson scissors. The superior and inferior aspects of the fascial incision were then grasped with the Sarmad clamps, elevated and the underlying rectus muscles were dissected off sharply. The peritoneum was entered digitally and the rectus muscles were then in the midline. The peritoneal incision was then extended superiorly and inferiorly with good visualization of the bladder. An Dc retractor was placed. The lower uterine segment was scored in a transverse fashion with the scalpel. The uterus was then entered bluntly and the incision was extended with traction with clear amniotic fluid noted. The infant's head was elevated to the level of the incision. Fundal pressure was applied. The head was delivered atraumatically in the OA position. The anterior shoulder, posterior shoulder and corpus were delivered without difficulty. The nose and mouth were suctioned with bulb suction and cord was clamped x2 and cut. Infant was vigorous. The was handed off to the awaiting nursing team. Cord blood obtained for typing. The placenta was then removed with uterine massage and cord traction. The uterus was exteriorized and cleared of all clot and debris. Cervix gently dilated with ring forcep. The uterine incision was repaired with 0-monocryl suture in a running locking fashion. A second layer of O-monocryl was used to close the hysterotomy incision in an imbricating fashion. The uterine incision was inspected and hemostasis was noted. In addition to standard IV pitocin, patient received TXA 1g IV x1 and methergine 0.2mg IM x1 with good tone achieved and maintained. The Enseal Tissue Sealer device was then used according to detailer instructions to seal and excise closely underlying the fallopian tubes, from lateral to medial aspects- given the very closely underlying engorged vasculature as the fallopian tubes approached the uterus, the fallopian tubes were excised at about 3/4 of their lengths for a near-total salpingectomy on each side. This was done on the right followed by the left side, and both fallopian tubes were then sent to pathology. Hemostasis of both pedicle lines was noted. The uterus was returned to the abdomen. All visible clot removed. Hysterotomy re-inspected and noted to be hemostatic. Dc retractor was removed. Hemostasis again noted. The peritoneum was closed using a 3-0 vicryl suture in running fashion. The rectus muscles were inspected and small areas of oozing were cauterized. The fascia was reapproximated with 0-Vicryl suture in a running fashion. The subcutaneous tissue was then copiously irrigated. Taryn's fascia was reapproximated using 3-0 vicryl suture in a running fashion in 2 layers. The skin was reapproximated with 4-0 monocryl suture in running subcuticular fashion. The incision was cleaned with a wet lap and dried with a dry lap. Pqckyhfcb-juzakhthpwp-heud bandage was applied overlying the incision and activated according to detailer instructions. Fundus was firm at the umbilicus. Sponge, lap and needle counts were correct x2. The procedure was without complications and the patient tolerated the procedure well. She was taken to recover further on Labor and Delivery, in stable condition. Surgical staff Operation Date: 04/20/25 07:45 Case Staff PAROLE BOARD MEMBER: Rashaun Vasquez RN First Assistant: Noy Ortiz Diagnosis Discharge Diagnosis (1) delivery delivered: Status: Acute (2) Encounter for tubal ligation: Status: Acute (3) Maternal care for low transverse scar from previous delivery: Status: Acute (4) Hypertension complicating in third trimester: Status: Acute (5) Obesity affecting in third trimester: Status: Acute (6) History of pre-eclampsia in prior , currently in third trimester: Status: Acute Problem List Completed Was Problem List Reviewed/Reconciled?: Yes (5) Obesity affecting in third trimester Qualifiers: Obesity type affecting : unspecified obesity Qualified Code(s): O99.213 - Obesity complicating , third trimester
[2025-04-20] MEDS: PRENATAL VITAMIN/FE FUM/FA TABLET 1 TAB PO (10:24)
[2025-04-20] MEDS: NIFEdipine XL 30 MG TABCR PO (10:24)
[2025-04-20] MEDS: ACETAMINOPHEN IVPB 1,000 MG/100 ML VIAL 250 MG IV (11:40)
--- NOTE | 2025-04-20 12:34 | PC.NURSE ---
DR MUSTAFA notified of blood pressures after entering recovery post . 160s/80s. Per she ordered nifedipine administration time now. Medication given.
[2025-04-20] MEDS: ceFAZolin/D5W 1 GM IVPB 1 GM/50 ML BAG IV ×2 (14:27→22:12)
[2025-04-20] MEDS: OXYTOCIN in NS 20 units 20 UNIT/1,000 ML BAG 125 UNIT IV (15:39)
[2025-04-20] MEDS: KETOROLAC INJ 30 MG/ML VIAL IVP (17:52)
[2025-04-20] MEDS: DOCUSATE SOD 100 MG CAPSULE PO (21:26)
[2025-04-20] MEDS: SIMETHICONE 80 MG CHEW PO (21:26)
[2025-04-21] MEDS: KETOROLAC INJ 30 MG/ML VIAL IVP ×2 (00:34→05:59)
[2025-04-21 00:50] VITALS: BP 118/78; PULSE 82; RESP 18; TEMP 36.3; O2SAT 97
[2025-04-21] MEDS: RINGERS LACTATED 1000 ML 1,000 ML 100 ML IV (01:20)
[2025-04-21 04:37] VITALS: BP 122/73; PULSE 75; RESP 20; TEMP 36.7; O2SAT 96
[2025-04-21 05:50] LABS: Basophils # (Auto) 0.0 Thou/mm3 (0.0-0.2); Basophils % (Auto) 0 % (0-2.5); Eosinophils # (Auto) 0.1 Thou/mm3 (0.0-0.5); Eosinophils % (Auto) 1 % (0-10); Hematocrit 28.2 % (36.0-46.0); Hemoglobin 9.3 g/dL (12.0-16.0); Immature Granulocytes Auto 0.09 Thou/mm3 (0.00-0.00); Lymphocytes # (Auto) 2.0 Thou/mm3 (1.0-4.8); Lymphocytes % (Auto) 14 % (10-50); Mean Corpuscular HGB Conc 33.0 g/dl (31.0-37.0); Mean Corpuscular Hemoglobin 28.7 pg (25.0-35.0); Mean Corpuscular Volume 87 fL (80-100); Monocytes # (Auto) 0.8 Thou/mm3 (0.0-0.8); Monocytes % (Auto) 6 % (0-12); Neutrophils # (Auto) 11.1 Thou/mm3 (1.8-7.7); Neutrophils % (Auto) 79 % (37-80); Nucleated Red Blood Cell # 0.00 Thou/mm3 (0.00-0.00); Nucleated Red Blood Cell % 0 /100 WBC (0); Platelet Count 134 Thou/mm3 (140-440); RDW Standard Deviation 44.7 fL (36.4-46.3); Red Blood Count 3.24 Miln/mm3 (4.00-5.20); White Blood Count 14.1 Thou/mm3 (3.6-11.0)
[2025-04-21] MEDS: ceFAZolin/D5W 2 GM IV 2 GM/100 ML BAG IV (05:59)
[2025-04-21] MEDS: ceFAZolin/D5W 1 GM IVPB 1 GM/50 ML BAG IV (07:02)
[2025-04-21 08:30] VITALS: BP 115/65; PULSE 80; RESP 16; TEMP 36.8; O2SAT 96
[2025-04-21 08:34] VITALS: BP 115/65; PULSE 80
[2025-04-21] MEDS: NIFEdipine XL 30 MG TABCR PO (08:34)
[2025-04-21] MEDS: DOCUSATE SOD 100 MG CAPSULE PO ×2 (08:34→21:22)
[2025-04-21] MEDS: HYDROcodone/APAP 5/325 TABLET 1 TAB PO (08:34)
[2025-04-21] MEDS: PRENATAL VITAMIN/FE FUM/FA TABLET 1 TAB PO (08:34)
[2025-04-21] MEDS: ENOXAPARIN SOD INJ 40 MG/0.4 ML SYRINGE SC (09:55)
--- NOTE | 2025-04-21 10:26 | ESPR_ITS ---
Subjective Subjective Interval history: Patient doing well overall. Pain is controlled. She is ambulating no lightheadedness/dizziness. Voiding spontaneously since todd was removed, no issues. Tolerating regular diet without nausea/vomiting. Passing gas. No fevers/chills, no CP/SOB. Exam Vital Signs Temp Pulse Resp BP Pulse Ox O2 Del Method 98.3 F 80 16 115/65 96 Room Air 04/21/25 08:30 04/21/25 08:34 04/21/25 08:30 04/21/25 08:34 04/21/25 08:30 04/21/25 08:30 Narrative Exam General: well developed, well nourished, no acute distress, conversant Cardiac: normal heart rate Lungs: breathing without distress Abdomen: soft, post-gravid, obese, non-tender, no rebound or guarding, pfannenstiel incision covered by dry/clean/intact prineo bandage. Incision well reapproximated. No erythema, drainage or induration. Fundus firm at u-2cm. Extremities: no pain with palpation of calves, trace edema of BLE Objective Labs 04/21/25 04:29 04/20/25 06:10 Labs: Laboratory Results - last 24 hr 04/21/25 04:29 WBC 14.1 H RBC 3.24 L Hgb 9.3 L Hct 28.2 L MCV 87 MCH 28.7 MCHC 33.0 RDW Std Deviation 44.7 Plt Count 134 L D Neut % (Auto) 79 Lymph % (Auto) 14 [place] % (Auto) 6 Eos % (Auto) 1 Baso % (Auto) 0 Neut # (Auto) 11.1 H Lymph # (Auto) 2.0 [place] # (Auto) 0.8 Eos # (Auto) 0.1 Baso # (Auto) 0.0 Immature Gran # (Auto) 0.09 H Absolute Nucleated RBC 0.00 Immature Gran % 1 H Nucleated RBC % 0 Assessment & Plan Problem List (1) delivery delivered: Status: Acute Assessment and plan: Mojgan is a 34yo s/p uncomplicated scheduled RLTCS with BTL at 37&1wk, doing well on POD 1. Vitals wnl, benign exam. Hemodynamically stable with no evidence of infection. Appropriate change in H/H from 10.4 to 9.3. complicated by: -Hx of section x3 -CHTN, taking nifedipine 30mg XL PO QD and ASA -Hx of pre-eclampsia with 1st -Current BMI 55.6 -Satisifed parity with desire for permanent sterilization Plan: -Continue routine /post-op care -Regular diet -Continue Nifedipine 30mg XL PO QD -motrin 800mg PO Q8hr, norco 5/325mg PO Q6hr prn pain -Encourage ambulation and use of IS -Anticipate discharge home tomorrow if meeting all milestones (2) Encounter for tubal ligation: Status: Acute (3) Maternal care for low transverse scar from previous delivery: Status: Acute (4) Hypertension complicating in third trimester: Status: Acute (5) Obesity affecting in third trimester: Status: Acute (6) History of pre-eclampsia in prior , currently in third trimester: Status: Acute Time Spent With Patient Time: Total time spent is greater than 50% in coordination of care (as documented) at patient's floor/unit and/or counseling patient:
[2025-04-21] MEDS: IBUPROFEN TAB 400 MG TABLET 800 MG PO ×2 (14:11→21:22)
[2025-04-21 15:56] VITALS: BP 136/82; PULSE 84; RESP 18; TEMP 37.2; O2SAT 96
[2025-04-21 19:20] VITALS: BP 118/72; PULSE 87; RESP 16; TEMP 36.6; O2SAT 96
[2025-04-22] MEDS: HYDROcodone/APAP 5/325 TABLET 1 TAB PO (03:30)
[2025-04-22 03:48] VITALS: BP 125/75; PULSE 80; RESP 18; TEMP 36.7; O2SAT 96
[2025-04-22] MEDS: IBUPROFEN TAB 400 MG TABLET 800 MG PO (05:49)
[2025-04-22 08:00] VITALS: BP 135/76; PULSE 91; RESP 19; TEMP 36.6; O2SAT 96
[2025-04-22] MEDS: PRENATAL VITAMIN/FE FUM/FA TABLET 1 TAB PO (08:00)
[2025-04-22] MEDS: ENOXAPARIN SOD INJ 40 MG/0.4 ML SYRINGE SC (08:00)
[2025-04-22] MEDS: DOCUSATE SOD 100 MG CAPSULE PO (08:00)
[2025-04-22] MEDS: NIFEdipine XL 30 MG TABCR PO (08:00)
--- NOTE | 2025-04-22 08:00 | CHAP ---
Patient was visited by a Spiritual Care Volunteer on 04/21/2025 between 1410 and 1712 and received comfort, encouragement and/or prayer.
--- NOTE | 2025-04-22 10:50 | ESDS_ITS ---
DS: Providers Provider Date of admission: 04/20/25 05:33 Primary care physician: Physician No Primary/Family Admitting Provider: Elenita Lozada MD Attending Provider on Admission: Elenita Lozada MD Consults: 04/20/25 09:52 Referral Routine Comment: Attending Provider on DC: Elenita Lozada MD Discharging Provider: Elenita Lozada MD DS: Diagnosis Discharge Diagnosis (1) delivery delivered: Status: Acute (2) Encounter for tubal ligation: Status: Acute (3) History of pre-eclampsia in prior , currently in third trimester: Status: Acute (4) Obesity affecting in third trimester: Status: Acute (5) Hypertension complicating in third trimester: Status: Acute Problem List Completed Was Problem List Reviewed/Reconciled?: Yes Summary/Hosp Course Brief History: Mojgan is a 34yo s/p uncomplicated scheduled RLTCS with BTL at 37&1wk, doing well on POD 2. Vitals wnl, benign exam. Hemodynamically stable with no evidence of infection. Appropriate change in H/H from 10.4 to 9.3. She has had an uncomplicated post-operative course, meeting all milestones and feels ready for discharge home. She is ambulating without lightheadedness, tolerating regular diet no n/v, spontaneously voiding without issue. She has no chest pain or shortness of breath. No fevers or chills. Pain well controlled. complicated by: -Hx of section x3 -CHTN, taking nifedipine 30mg XL PO QD -Hx of pre-eclampsia with 1st -Current BMI 55.6 -Satisifed parity with desire for permanent sterilization Peripartum Data Delivery Method: Low Transverse Procedures: Procedures Operation Date: 04/20/25 07:45 Actual Procedure Side Surgeon p w/tubal OB Not Applicable Elenita Lozada MD Status at Discharge Functional status at discharge: independent ambulation Overall status at discharge: patient is back to baseline Time Spent with Patient Time attestation: Total time spent providing and/or coordinating discharge services: Exam Vital Signs Temp Pulse Resp BP Pulse Ox O2 Del Method 97.9 F 91 19 135/76 H 96 Room Air 04/22/25 08:00 04/22/25 08:00 04/22/25 08:00 04/22/25 08:00 04/22/25 08:00 04/22/25 08:00 Narrative Exam General: well developed, well nourished, no acute distress, conversant Cardiac: normal heart rate Lungs: breathing without distress Abdomen: soft, post-gravid, obese, non-tender, no rebound or guarding, pfannenstiel incision covered by dry/clean/intact prineo bandage. Incision well reapproximated. No erythema, drainage or induration. Fundus firm at u-2cm. Extremities: no pain with palpation of calves, trace edema of BLE Discharge Plan Plan Patient Disposition: HOME (Self Care) Patient condition on transfer: Stable Prescriptions/Referrals Prescriptions/Med Rec: New hydrocodone-acetaminophen 5-325 mg Tablet 1 tab PO Q6H MDD 4 tablets PRN (Reason: Patient rated pain 7 to 8) 7 Days Qty: 10 0RF docusate sodium 100 mg Capsule 100 mg PO BID 10 Days Qty: 20 0RF ibuprofen 800 mg tablet 800 mg PO Q8HR PRN (Reason: Abdominal Pain) 10 Days Qty: 30 0RF Continued Vitamin Plus Low Iron 27 mg iron- 1 mg tablet 1 tab PO QDAY 90 Days Qty: 90 6RF nifedipine 30 mg tablet extended release 30 mg PO QDAY 30 Days Qty: 30 2RF Referrals: No Primary/Family,Physician [Primary Care Provider] Patient/Caregiver Discharge Instructions Discharge Activity: activity as tolerated and other Other Discharge Activity Instructions:: vaginal rest and no heavy lifting more than 10 pounds for 6 weeks[address] while taking narcotic. keep incision clean and dry, do not submerge Other Discharge Diet Instructions: regular Education Materials: Understanding Blues, Nutrition While , C Section Dc Print Language: Japanese Activity Restrictions/Additional Instructions: follow up with Dr. Toney for incision check in 1 week, call office to schedule appointment Stand Alone Forms: Eveline Award Info., Patient Portal Info Letter Discharge Order Discharge Orders: Discharge (Routine); Ordered 04/22/25 Ordered By: Elenita Lozada Planned Discharge Date 04/22/25 (4) Obesity affecting in third trimester Qualifiers: Obesity type affecting : unspecified obesity Qualified Code(s): O99.213 - Obesity complicating , third trimester
== END 2025-04-22 13:20 | disposition home or self-care (01) | DRG 539 ==
LOC: S4SX 05:36 → S4NX 07:51
PROVIDERS: Admitting Provider Obstetrics & Gynecology; Visit Provider Obstetrics & Gynecology
PROC: 0UL70ZZ Occlusion of Bilateral Fallopian Tubes, Open Approach (ICD-10-PCS; CPT 59514; principal; 2025-04-20 07:30)
DX: O34.211 Maternal care for low transverse scar from previous cesarean delivery (principal); O10.92 Unspecified pre-existing hypertension complicating childbirth; O99.214 Obesity complicating childbirth; Z37.0 Single live birth; Z3A.37 37 weeks gestation of pregnancy; Z30.2 Encounter for sterilization; Z87.59 Personal history of other complications of pregnancy, childbirth and the puerperium; Z79.899 Other long term (current) drug therapy
CPT/HCPCS: 36415; 80053; 85025; 86780; 86850; 86900; 86901; J0131; J0689; J1650; J1885; J2274; J2405; J2590; J2765; J3010; J3490; J7120; A9270; J2270

== ENCOUNTER 2025-05-04 11:26 | Outpatient (AMB) | payer MEDICAID, SELFPAY ==
--- NOTE | 2025-05-04 11:30 | AMB.OBPP ---
Vital Signs 05/04/25 11:41 Weight 126.609 kg Weight Measurement Method Standing Scale BP 132/87 H Blood Pressure Source Automatic Cuff Blood Pressure Location Left Upper Arm Position Sitting Respiration 18 Pulse 81 Pulse Source Monitor Temp 97.2 F Temp Source Oral Pulse Oximetry (%) 98 Oxygen Delivery Method Room Air Allergies/Home Meds Allergies & Medications Allergies No Known Allergies Allergy (Unknown, Verified 05/04/25 11:55) Medication Reconciliation vitamins with calcium no.72-iron 27 mg-folic acid 1 mg tablet ( Vitamins Plus Low Iron) 1 tab PO QDAY 90 days #90 tabs 10/07/24 [Rx Confirmed 05/04/25] nifedipine 30 mg tablet,extended release 30 mg PO QDAY 30 days #30 tabs 02/05/25 [Rx Confirmed 05/04/25] clindamycin phosphate 1 % topical solution 1 applic topical QDAY 7 days #60 mL 05/04/25 [Rx Confirmed 05/04/25] clobetasol 0.05 % lotion 1 applic topical QDAY 7 days #59 mL 05/04/25 [Rx Confirmed 05/04/25] Intake Visit Data Collection New Patient or Established: Established Patient (seen at [facility] within 3 years) Reason for Visit:: pp Seen by Clinical Staff ONLY (RN/MA): No Event Planning Intern Required: No Do You Feel Safe at Home: Yes Authorities Contacted: N/A PCP or OBGYN visit in last 3 months: Yes Date of Last PCP or OBGYN visit: 04/28/25 Hx Now: No Are you currently on any form of Control: No Pain Present Currently: No Pain Scale Used: Magallanes-Oropeza/Numerical Pain scale:: 0 Smoking Status Smoking Status: Never smoker Immunizations Flu Vaccine in the Last 12 Months: No Flu Vaccine Exclusion Criteria: No Exclusion Criteria SOA ENGINEER: Past Medical History Past Medical History: No Hx Neurological Disorders, Yes Hx Cardiac Disorders (Gestational hypertension with this , Preeclampsia with previous), No Hx Cancer, No Hx Blood Disorders, Yes Hx Gastrointestinal Disorders, No Hx Renal Disease, No Hx Diabetes Mellitus Type 1 and No Hx Diabetes Mellitus Type 2 Questionnaires Covid-19 Vaccine Questionnaire Has patient been vacinated for Covid-19 Have you been vacinated for Covid-19: Yes Social History Living Situation History Lives With: Alone Housing: Apartment Tobacco History Smoking Status: Never smoker Second Hand Smoke Exposure: No Alcohol History Alcohol Intake: Never Alcohol Intake Frequency: holidays/special occasions only Domestic Abuse History Do You Feel Safe at Home: Yes EPDS - PP Depression Screening [place] Pospartum Depression Screen I have been able to laugh and see the funny side of things: (0) As much as I always could I have looked forward with enjoyment to things: (0) As much as I ever did I have blamed myself unnecessarily when things went wrong: (0) No, never I have been anxious or worried for no good reason: (0) No, not at all I have felt scared or panicky for no very good reason: (0) No, not at all Things have been getting on top of me: (0) No, I have been coping as well as ever I have been so unhappy that I have had difficulty sleeping: (0) No, not at all I have felt sad or miserable: (0) No, not at all I have been so unhappy that I have been crying: (0) No, never The thought of harming myself has occurred to me: (0) Never Total Score: EPDS Score: Referral is indicated for score of 9 or more, suicidal, or if provider believes patient is depressed regardless of score.: 0 EPDS completed yes Care OB Visit Log OB Flowsheet Initial Weight: Not Recorded Date <del>?</del> EGA Weight BP Alb Glu CTX Pres Fundal ht FHR Mov Dilation Station Effacement Hx Notes Visit Note 10/07/24 <del>?</del> 9w 2d 134.944 kg 128/82 165 Mojgan Martinez, [id number] at 9w2d gestation (RUBY: 05/10/2025), presents for care. No CTX/LOF/VB. No NIELSON/VS, Epig/RUQ pain. Reports daily nausea, improved with eating, increased appetite. History of blighted ovum treated with suction curettage December 2023. Ultrasound (10/07/2024): FHR 165 bpm, CRL 8w1d, round gestational sac. Assessment & Plan: [id number] at 9w2d. Intrauterine confirmed. Nausea likely with reflux component. 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 No complaints or concerns reported. Denies nausea or other symptoms. heart tones 151 bpm. Ultrasound shows appropriate anatomy including head, trunk, stomach, and extremities. Genetic screening negative for trisomies, SMA, Fragile X, and cystic fibrosis; sex consistent with male. Routine labs including CBC, HIV, hepatitis panel, and antibody screen were unremarkable. Plan: Problem List: 13w4d, . Follow-up in 4 weeks. Patient will be contacted by [facility] to schedule detailed anatomy ultrasound around 20 weeks. Reviewed precautions, movement expectations, and importance of diet and hydration. Routine education provided. - Date: 10/09/2024 - Hepatitis B: Negative - Hepatitis C: Negative - Atypical antibodies: Non-reactive - Rubella: Immune - Blood group: O-positive - Antibody screen: Negative - HIV: Negative - Gonorrhea: Intermediate-negative - CBC: Hemoglobin 11.6 g/dL, Hematocrit 34.9%, Platelets 200.6 K/?L - NIPT (Non-Invasive Testing): Negative for trisomies and chromosomal abnormalities, sex consistent with male - SMA (Spinal Muscular Atrophy) testing: Negative - Fragile X testing: Negative - Cystic Fibrosis screening: Negative 12/02/24 <del>?</del> 17w 2d 134.774 kg 128/72 absent unknown 144 at 17w2d, RUBY 05/10/25. Routine care. Denies nausea/vomiting, taking vitamins. Bedside US: FHR 144, normal anatomy/movement, placenta/fluid/cord normal. Awaiting [facility] Level 2 anatomy scan referral (~20w), GTT at next visit, continue vitamins, FU 4w, call if no referral contact in 2w. 01/02/25 <del>?</del> 21w 5d 132.619 kg 138/80 02/03/25 <del>?</del> 26w 2d 134.83 kg 132/79 absent cephalic 146 26w2d with negative 1hr GTT (130), FHR 146, normal anatomy except limited views, breech, no signs of labor. Plan: Send prescription for preeclampsia prevention, follow-up U/S at [facility]s this week, RTC in 4 weeks, monitor diet and weight. 02/20/25 <del>?</del> 28w 5d 135.171 kg 139/77 03/20/25 <del>?</del> 32w 5d 132.165 kg 125/78 04/06/25 <del>?</del> 35w 1d 135.284 kg 123/75 04/13/25 <del>?</del> 36w 1d 136.305 kg 128/83 RUBY Calculator Estimated Delivery Date Method Current WG Current Estimate 05/10/25 LMP (Certain) 39w 1d Other Estimates 05/17/25 Ultrasound #1 38w 1d Office Procedures [facility] LOC & Office Proc's Nursing/Assessment Patient Status: Established Patient OB Clinic Nursing Assessment: Medication Reconciliation, Update PMH in EMR and Vital Signs OB Clinic Coordination of Care: Consent,records obtained, informed consent, Education Simp Pt/Fam, Lab and Imaging orders, Results/Orders obtained and Staff clarify orders Established Patient Charge Established Patient Point Assignment: 80 Established Patient Point Charge: EP Level 3 (80-115) Assessment & Plan Diagnosis / Problem List (1) section wound complication: Status: Acute
[2025-05-04 11:41] VITALS: BP 132/87; PULSE 81; RESP 18; TEMP 36.2; O2SAT 98
== END 2025-05-04 11:49 | disposition home or self-care (01) ==
LOC: HODSOBC 11:26
PROVIDERS: Supervising Provider Obstetrics & Gynecology; Visit Provider Obstetrics & Gynecology
DX: Z39.2 Encounter for routine postpartum follow-up (principal); O90.89 Other complications of the puerperium, not elsewhere classified
CPT/HCPCS: 99213; G0463

== ENCOUNTER 2025-06-08 09:25 | Outpatient (AMB) | payer MEDICAID, SELFPAY ==
--- NOTE | 2025-06-08 09:34 | AMB.OBPP ---
Vital Signs 06/08/25 09:44 Height 1.55 m Height Method Stated Weight 126.779 kg Weight Measurement Method Standing Scale BMI 52.8 BP 133/83 H Blood Pressure Source Automatic Cuff Blood Pressure Location Left Upper Arm Position Sitting Respiration 14 Pulse 68 Pulse Source Monitor Temp 97.7 F Temp Source Oral Pulse Oximetry (%) 96 Oxygen Delivery Method Room Air Allergies/Home Meds Allergies & Medications Allergies No Known Allergies Allergy (Unknown, Verified 06/08/25 09:46) Medication Reconciliation vitamins with calcium no.72-iron 27 mg-folic acid 1 mg tablet ( Vitamins Plus Low Iron) 1 tab PO QDAY 90 days #90 tabs 10/07/24 [Rx Confirmed 06/08/25] nifedipine 30 mg tablet,extended release 30 mg PO QDAY 30 days #30 tabs 02/05/25 [Rx Confirmed 06/08/25] Intake Visit Data Collection New Patient or Established: Established Patient (seen at [facility] within 3 years) Reason for Visit:: FOLLOW UP Seen by Clinical Staff ONLY (RN/MA): No Courtroom Deputy Required: No Do You Feel Safe at Home: Yes Authorities Contacted: N/A PCP or OBGYN visit in last 3 months: Yes Hx Now: No Are you currently on any form of Control: No Pain Present Currently: No Pain Scale Used: Magallanes-Oropeza/Numerical Pain scale:: 0 Smoking Status Smoking Status: Never smoker Immunizations Flu Vaccine in the Last 12 Months: No Flu Vaccine Exclusion Criteria: Refused by Patient 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: Past Medical History Past Medical History: No Hx Neurological Disorders, Yes Hx Cardiac Disorders (Gestational hypertension with this , Preeclampsia with previous), No Hx Cancer, No Hx Blood Disorders, Yes Hx Gastrointestinal Disorders, No Hx Renal Disease, No Hx Diabetes Mellitus Type 1 and No Hx Diabetes Mellitus Type 2 Questionnaires Covid-19 Vaccine Questionnaire Has patient been vacinated for Covid-19 Have you been vacinated for Covid-19: No Social History Living Situation History Lives With: Alone Housing: Apartment Tobacco History Smoking Status: Never smoker Second Hand Smoke Exposure: No Alcohol History Alcohol Intake: Never Alcohol Intake Frequency: holidays/special occasions only Domestic Abuse History Do You Feel Safe at Home: Yes EPDS - PP Depression Screening [place] Pos[place] Depression Screen I have been able to laugh and see the funny side of things: (0) As much as I always could I have looked forward with enjoyment to things: (0) As much as I ever did I have blamed myself unnecessarily when things went wrong: (0) No, never I have been anxious or worried for no good reason: (0) No, not at all I have felt scared or panicky for no very good reason: (0) No, not at all Things have been getting on top of me: (0) No, I have been coping as well as ever I have been so unhappy that I have had difficulty sleeping: (0) No, not at all I have felt sad or miserable: (0) No, not at all I have been so unhappy that I have been crying: (0) No, never The thought of harming myself has occurred to me: (0) Never EPDS completed yes HPI Interval History: Mojgan Martinez is a 34-year-old female presenting for a visit following section delivery on April 20, 2025. She was previously seen on May 04, 2025 for slight separation of her scar, which was treated with antibiotics. The patient reports that her has healed well and everything is going good. She is currently and reports that the baby is doing very well. She had a tubal ligation procedure performed and does not desire control. She has a history of section on April 20, 2025, complicated by slight separation of caesarean scar treated with antibiotics on May 04, 2025. She also had a tubal ligation performed. The patient was previously treated with antibiotics for slight separation of caesarean scar on May 04, 2025. She is a 34-year-old female and is currently . Exam General General Appearance: alert, in no apparent distress and healthy appearing Head Head exam: atraumatic Neck Neck exam: Present normal inspection and trachea midline Chest Chest inspection: Present normal inspection and symmetric chest wall rise External exam: Present normal external exam; Absent tenderness Neuro Neurological exam: Present oriented X3 Psych Psychiatric exam: Present normal affect and normal mood Office Procedures OBC Clinic LOC & Office Proc's Nursing/Assessment Patient Status: Established Patient OB Clinic Nursing Assessment: Medication Reconciliation, Update PMH in EMR and Vital Signs OB Clinic Coordination of Care: Complex Care and Chronic Disease 1-5, Consent,records obtained, informed consent, Education Simp Pt/Fam, 1 Ins Authorization, Lab and Imaging orders, Results/Orders obtained and Staff clarify orders Established Patient Charge Established Patient Point Assignment: 120 Established Patient Point Charge: EP Level 4 (120-155) Assessment & Plan Diagnosis / Problem List (1) delivery delivered: Status: Acute (2) Encounter for routine follow-up: Status: Acute Plan Status Post Section: - 7 weeks following delivery on April 20, 2025. - Previous scar separation on May 04, 2025, treated with antibiotics. - section has healed well with no ongoing concerns. - Tubal ligation performed at time of delivery. - with mother and baby doing well. Plan: - Patient cleared from obstetric care with no further obstetric follow-up needed. - Establish care with primary care physician for ongoing health monitoring including diabetes surveillance. - Continue vitamins if available, or transition to regular women's daily multivitamin to support recovery. - Contact obstetric provider if any concerns arise.
[2025-06-08 09:44] VITALS: BP 133/83; PULSE 68; RESP 14; TEMP 36.5; O2SAT 96; BMI 52.8
== END 2025-06-08 10:05 | disposition home or self-care (01) ==
LOC: HODSOBC 09:25
PROVIDERS: Supervising Provider Obstetrics & Gynecology; Visit Provider Obstetrics & Gynecology
DX: Z39.2 Encounter for routine postpartum follow-up (principal)
CPT/HCPCS: 99214; G0463